=== PATIENT | male | born 1970 | race Caucasian/White ===

== ENCOUNTER → 2017-09-24 10:13 | Outpatient (CLI) | payer OTHER, SELFPAY ==
[2017-09-24 10:57] LABS: INR 2.4 (1.0-3.5); Prothrombin Time 23.1 sec (9.3-10.8)
== END ==
PROVIDERS: PCP Nurse Practitioner; Visit Provider Nurse Practitioner
DX: Z95.2 Presence of prosthetic heart valve (principal); Z79.01 Long term (current) use of anticoagulants
CPT/HCPCS: 85610

== ENCOUNTER → 2017-10-16 10:03 | Outpatient (CLI) | payer OTHER, SELFPAY ==
[2017-10-16 10:35] LABS: INR 2.4 (1.0-3.5); Prothrombin Time 22.7 sec (9.3-10.8)
== END ==
PROVIDERS: PCP Nurse Practitioner; Visit Provider Nurse Practitioner
DX: Z79.01 Long term (current) use of anticoagulants (principal); Z95.2 Presence of prosthetic heart valve
CPT/HCPCS: 36415; 85610

== ENCOUNTER 2017-12-01 15:35 | Outpatient (CLI) | payer OTHER, SELFPAY ==
[2017-12-01 16:17] LABS: INR 2.2 (1.0-3.5); Prothrombin Time 20.7 sec (9.3-10.8)
== END 2017-12-01 15:55 ==
PROVIDERS: PCP Nurse Practitioner; Visit Provider Nurse Practitioner
DX: Z95.2 Presence of prosthetic heart valve (principal); Z79.01 Long term (current) use of anticoagulants
CPT/HCPCS: 36415; 85610

== ENCOUNTER 2018-01-18 15:36 | Outpatient (CLI) | payer OTHER, SELFPAY ==
[2018-01-18 16:23] LABS: Prothrombin Time 18.8 sec (9.3-10.8)
== END 2018-01-18 15:56 ==
PROVIDERS: PCP Nurse Practitioner; Visit Provider Nurse Practitioner
DX: Z79.01 Long term (current) use of anticoagulants (principal); Z95.2 Presence of prosthetic heart valve
CPT/HCPCS: 36415; 85610

== ENCOUNTER 2018-02-24 15:20 | Outpatient (CLI) | payer OTHER, SELFPAY ==
[2018-02-24 16:39] LABS: Prothrombin Time 19.6 sec (9.3-11.0)
[2018-02-24 16:42] LABS: INR 1.9 (0.9-1.1)
== END 2018-02-24 15:40 ==
PROVIDERS: PCP Nurse Practitioner; Visit Provider Nurse Practitioner
DX: Z79.01 Long term (current) use of anticoagulants (principal); Z95.2 Presence of prosthetic heart valve
CPT/HCPCS: 36415; 85610

== ENCOUNTER 2018-03-06 15:29 | Outpatient (CLI) | payer OTHER, SELFPAY ==
[2018-03-06 16:42] LABS: INR 2.7 (0.9-1.1); Prothrombin Time 27.6 sec (9.3-11.0)
== END 2018-03-06 15:49 ==
PROVIDERS: PCP Nurse Practitioner; Visit Provider Nurse Practitioner
DX: Z95.2 Presence of prosthetic heart valve (principal); Z79.01 Long term (current) use of anticoagulants
CPT/HCPCS: 36415; 85610

== ENCOUNTER 2018-05-25 08:24 | Outpatient (REF) | payer OTHER, SELFPAY ==
[2018-05-25 12:53] LABS: ALT 28 U/L (12-78); AST 25 U/L (15-37); Alkaline Phosphatase 85 U/L (46-116); Anion Gap 8.8 mmol/L (3-11); BUN 17 mg/dL (7-18); Bilirubin, Total 0.6 mg/dL (0.2-1.0); CO2 27.2 mmol/L (21.0-32.0); CREATININE 1.06 mg/dL (0.70-1.30); Calcium 8.9 mg/dL (8.5-10.1); Chloride 105 mmol/L (98-107); Cholesterol 247 mg/dL (50-200); Glucose 87 mg/dL (70-100); HDL Cholesterol 39 mg/dL (40-60); LDL CHOLESTEROL 178 mg/dL (<100); Potassium 4.2 mmol/L (3.5-5.1); Sodium 141 mmol/L (136-145); Total Protein 7.1 g/dL (6.4-8.2); Triglyceride 93 mg/dL (30-150)
== END 2018-05-25 08:44 ==
LOC: NCHCN 08:24
PROVIDERS: PCP Nurse Practitioner; Visit Provider Nurse Practitioner
DX: E78.5 Hyperlipidemia, unspecified (principal); Z95.2 Presence of prosthetic heart valve
CPT/HCPCS: 80053; 80061; 83721; 87081

== ENCOUNTER 2018-06-23 15:11 | Outpatient (CLI) | payer OTHER, SELFPAY ==
[2018-06-23 16:07] LABS: INR 2.1 (0.9-1.1); Prothrombin Time 21.2 sec (9.3-11.0)
== END 2018-06-23 15:31 ==
PROVIDERS: PCP Nurse Practitioner; Visit Provider Nurse Practitioner
DX: Z95.2 Presence of prosthetic heart valve; Z79.01 Long term (current) use of anticoagulants
CPT/HCPCS: 36415; 85610

== ENCOUNTER 2018-09-13 15:14 | Outpatient (CLI) | payer OTHER, SELFPAY ==
[2018-09-13 16:07] LABS: Prothrombin Time 20.6 sec (9.3-11.0)
== END 2018-09-13 15:34 ==
PROVIDERS: PCP Nurse Practitioner; Visit Provider Nurse Practitioner
DX: Z95.2 Presence of prosthetic heart valve (principal); Z79.01 Long term (current) use of anticoagulants
CPT/HCPCS: 36415; 85610

== ENCOUNTER 2018-11-07 15:34 | Outpatient (CLI) | payer OTHER, SELFPAY ==
[2018-11-07 16:19] LABS: INR 1.9 (0.9-1.1); Prothrombin Time 19.1 sec (9.3-11.0)
== END 2018-11-07 15:54 ==
PROVIDERS: PCP Nurse Practitioner; Visit Provider Nurse Practitioner
DX: Z95.2 Presence of prosthetic heart valve (principal); Z79.01 Long term (current) use of anticoagulants
CPT/HCPCS: 36415; 85610

== ENCOUNTER 2019-04-30 15:24 | Outpatient (CLI) | payer OTHER, SELFPAY ==
[2019-04-30 16:03] LABS: INR 1.9 (0.9-1.1); Prothrombin Time 18.4 sec (9.3-11.0)
== END 2019-04-30 15:44 ==
PROVIDERS: PCP Nurse Practitioner; Visit Provider Nurse Practitioner
DX: Z95.2 Presence of prosthetic heart valve (principal); Z79.01 Long term (current) use of anticoagulants
CPT/HCPCS: 36415; 85610

== ENCOUNTER 2019-05-09 15:17 | Outpatient (CLI) | payer OTHER, SELFPAY ==
[2019-05-09 16:25] LABS: INR 2.1 (0.9-1.1)
== END 2019-05-09 15:37 ==
PROVIDERS: PCP Nurse Practitioner; Visit Provider Nurse Practitioner
DX: Z79.01 Long term (current) use of anticoagulants (principal)
CPT/HCPCS: 36415; 85610

== ENCOUNTER 2019-05-23 15:30 | Outpatient (REF) | payer OTHER, SELFPAY ==
[2019-05-23 17:58] LABS: ALT 27 U/L (16-63); AST 25 U/L (15-37); Albumin 4.4 g/dL (3.4-5.0); Alkaline Phosphatase 85 U/L (46-116); Anion Gap 7.6 mmol/L (3-11); BUN 15 mg/dL (7-18); Bilirubin, Total 0.7 mg/dL (0.2-1.0); CO2 29.4 mmol/L (21.0-32.0); CREATININE 1.11 mg/dL (0.70-1.30); Calcium 9.1 mg/dL (8.5-10.1); Calculated LDL 167 mg/dL (<100); Chloride 103 mmol/L (98-107); Cholesterol 224 mg/dL (<200); Glucose 81 mg/dL (74-106); HDL Cholesterol 45 mg/dL (40-60); Potassium 4.4 mmol/L (3.5-5.1); Sodium 140 mmol/L (136-145); Total Protein 7.6 g/dL (6.4-8.2); Triglyceride 63 mg/dL (<150)
== END 2019-05-23 15:50 ==
LOC: NCHCN 15:30
PROVIDERS: PCP Nurse Practitioner; Visit Provider Nurse Practitioner
DX: Z00.00 Encounter for general adult medical examination without abnormal findings (principal); E78.5 Hyperlipidemia, unspecified
CPT/HCPCS: 80053; 80061

== ENCOUNTER 2019-12-18 14:16 | Outpatient (REF) | payer OTHER, SELFPAY ==
[2019-12-18 19:16] LABS: Calculated LDL 182 mg/dL (<100); Cholesterol 248 mg/dL (<200); HDL Cholesterol 50 mg/dL (40-60); Triglyceride 81 mg/dL (<150)
[2019-12-18 19:21] LABS: INR 2.2 (0.9-1.1); Prothrombin Time 21.3 sec (9.3-11.0)
== END 2019-12-18 14:36 ==
LOC: NCHCN 14:16
PROVIDERS: PCP Nurse Practitioner; Visit Provider Nurse Practitioner
DX: E78.5 Hyperlipidemia, unspecified (principal); Z79.01 Long term (current) use of anticoagulants
CPT/HCPCS: 80061; 85610

== ENCOUNTER 2020-02-05 00:26 | Outpatient (CLI) | payer OTHER, SELFPAY ==
--- NOTE | 2020-02-05 07:29 | DI.US_ITS ---
APPROVED REPORT EXAM: Comprehensive 2D, Doppler, and color-flow Echocardiogram Patient Location: Out-Patient Driver License Technician: Palmira Morse RDCS (AE) Indications: History of aortic valve replacement, [place] valve Other Information Study Quality: Adequate Conclusion Left Ventricle : Left ventricle is mildly dilated. The left ventricular systolic function is normal. The left ventricular ejection fraction is within the normal range. There is normal left ventricular w all thickness. There is normal LV segmental wall motion. The left ventricular diastolic function is n ormal. LVEF is 56%. Right Ventricle : The right ventricle is normal size. The right ventricular systolic function is norm al. The RVSP is 21.8mmHg. Atria : The left atrium size is normal. The right atrium size is normal. Aortic Valve : Mechanical aortic valve is present. Prosthetic aortic valve is normal in appearance. T race aortic regurgitation. No hemodynamically significant valvular aortic stenosis. Mitral Valve : The mitral valve is normal in structure. Mild mitral regurgitation. No evidence of briana ral valve stenosis. Great Vessels : The aortic root is normal in size. IVC is normal in size and collapses >50% with insp iration. The ascending aorta is normal in size. Aortic arch is normal in caliber. There is no prior study available for comparison. Wall motion Left Ventricle Left ventricle is mildly dilated. The left ventricular systolic function is normal. The left ventricu lar ejection fraction is within the normal range. There is normal left ventricular wall thickness. Th ere is normal LV segmental wall motion. The left ventricular diastolic function is normal. There is n o ventricular septal defect visualized. LVEF is 56%. Right Ventricle The right ventricle is normal size. The right ventricular systolic function is normal. The RVSP is 21 .8mmHg. Atria The left atrium size is normal. The right atrium size is normal. The interatrial septum is intact wit h no evidence for an atrial septal defect. Aortic Valve No hemodynamically significant valvular aortic stenosis. Trace aortic regurgitation. Mechanical aorti c valve is present. Prosthetic aortic valve is normal in appearance. Mitral Valve The mitral valve is normal in structure. No evidence of mitral valve stenosis. Mild mitral regurgitat ion. Tricuspid Valve The tricuspid valve is normal in structure. There is no tricuspid valve stenosis. Trace tricuspid reg urgitation. Pulmonic Valve The pulmonary valve is normal in structure. There is no pulmonic valvular stenosis. Trace to mild pul partha regurgitation. Great Vessels The aortic root is normal in size. The ascending aorta is normal in size. Aortic arch is normal in ca liber. IVC is normal in size and collapses >50% with inspiration. Pericardium There is no pericardial effusion. 2D Dimensions IVSD d PLAX 0.98 cm M: 0.6-1.2 LV Vol A2C d MOD 214.1 mL LVPW d PLAX 0.98 cm M: 0.6 - 1.2 LV Vol A4C d MOD 176.1 mL LVID d PLAX 6.25 cm M: 4.2 - 5.8 LA vol/ BSA A4C s A-L 26.6 mL/m2 LVDs 4.30 cm M: 2.5 - 4.0 LA Area A4C s MOD 19.94 cm2 Ao Root d 2.92 cm M: 3.1 - 3.7 LV EF A4C MOD 55.0 % RA Area A4C 18.98 cm2 LV EF A2C MOD 56.3 % RA Vol/ BSA A4C s A-L 26.2 mL/m2 LV EF Biplane MOD 55.1 % Ao Asc Diam d 3.13 cm M: 2.6 - 3.4 SV 108.23 mL LV EF Teichholz 57.7 % SV Index 48.30 mL/m2 LVEF (Chan's) 55.08 % M: 52 - 72 LV Volume 142.10 mL M: 62 - 150 LV Volume Index 63.43 mL/m2 M: 34 - 74 LV Vol Biplane MOD 196.5 mL FS 30.95 % M-Mode TAPSE 2.05 cm (M/F) >1.7 LV Diastology MV E' medial 0.081 (>0.07 m/s) E/A Ratio 2.2 LV E/e MED 9.35 (<14) MV E Vmax 0.76 (0.4-1.3 m/s) MV E' lateral 0.150 (>0.1 m/s) MV A Vmax 0.35 (0.4-1.3 m/s) LV E/e LAT 5.05 (<14) MV E/A Ratio 2.15 MV E/E' medial 9.39 MV E/E' lateral 5.05 Aortic Valve LVOT Area 2.96 cm2 AoV Area Vmax 1.84 cm2 LVOT Vmax 1.49 m/s AoV Area/ BSA (Vmax) 0.82 cm2/m2 LVOT Mean Yasmany. 0.80 m/s DESIREE Mean Yasmany. 1.48 cm2 LVOT Peak Grad 8.9 mmHg DESIREE Mean Yasmany. Index 0.66 cm2/m2 LVOT Mean Grad 3.3 mmHg LVOT VTI 0.289 m LVOT Diam s 1.90 cm AoV Vmax 2.41 m/s Velocity Ratio 0.61 AoV Mean Yasmany. 1.60 m/s AoV Peak Grad 23.3 mmHg LVOT SV 85.66 mL AoV Mean Grad 11.8 mmHg AoV VTI 0.477 m AoV Area VTI 1.79 cm2 AoV Area/ BSA (VTI) 0.80 cm/m2 Mitral Valve MV DT 269 (160-240 msec) MR Vmax 4.62 m/s MV PHT 78 msec MR VTI 1.713 m MV Area PHT 2.82 cm2 MR Peak Grad 85.4 mmHg MV VTI 0.325 m MR Mean Grad 55.5 mmHg MV VTI Annulus 0.332 m MR PISA Radius 0.70 cm MV Area VTI 2.70 (4.0-6.0 cm2) MR EROA 0.23 cm2 MR Aliasing Velocity 0.35 m/s MR PISA 3.06 cm2 Pulmonary Valve PV Vmax 1.05 (0.5-1.5 m/s) RVOT Peak Gr. 2.19 mmHg PV Peak Grad 4.4 mmHg RVOT Mean Gr. 1.05 mmHg PV Mean Grad 2.1 mmHg RVOT VTI 0.178 m PV VTI 0.241 m RVOT Vmax 0.74 m/s Tricuspid Valve TR Peak Grad 18.8 mmHg TR Vmax 2.17 m/s RA Pressure 3.00 mmHg RVSP (TR) 21.8 mmHg
== END 2020-02-05 00:46 ==
PROVIDERS: PCP Nurse Practitioner; Visit Provider Internal Medicine Cardiovascular Disease
DX: Z95.2 Presence of prosthetic heart valve (principal); I34.0 Nonrheumatic mitral (valve) insufficiency
CPT/HCPCS: 93306

== ENCOUNTER 2020-09-03 12:27 | Outpatient (REF) | payer BC, SELFPAY ==
[2020-09-03 14:25] LABS: Abs Immature Grans 0.01 10^3/uL (0.0-0.06); Absolute Basophil Count 0.03 10^3/uL (0.0-0.2); Absolute Eosinophil Count 0.13 10^3/uL (0.0-0.7); Absolute Lymphocyte Count 0.91 10^3/uL (1.2-3.4); Absolute Monocyte Count 0.48 10^3/uL (0.1-0.8); Absolute Neutrophil Count 3.63 10^3/uL (1.2-6.7); Basophils % 0.6; Eosinophils % 2.5; HCT 42.3 % (40.0-50.0); HGB 13.9 g/dL (13.5-17.5); Immature Grans % 0.2; Lymphocytes % 17.5; MCH 29.6 pg (27.0-33.0); MCHC 32.9 % (32.0-36.0); MPV 12.8 fL (8.0-11.0); Monocytes % 9.2; Nucleated RBC 0 %; Platelet Count 166 10^3/uL (130-400); RDW 12.7 % (11.8-14.1); RDW-SD 41.9 fL; WBC 5.19 10^3/uL (4.4-10.8)
[2020-09-03 14:38] LABS: INR 2.1 (0.9-1.1); Prothrombin Time 20.3 sec (9.3-11.0)
[2020-09-03 14:39] LABS: Anion Gap 6.5 mmol/L (3-11); BUN 12 mg/dL (7-18); CO2 29.5 mmol/L (21.0-32.0); CREATININE 1.1 mg/dL (0.70-1.30); Calcium 8.9 mg/dL (8.5-10.1); Chloride 107 mmol/L (98-107); Glucose 106 mg/dL (74-106); Potassium 4.6 mmol/L (3.5-5.1); Sodium 143 mmol/L (136-145)
== END 2020-09-03 12:28 | disposition home or self-care (01) ==
LOC: LBN 12:27
PROVIDERS: PCP Nurse Practitioner; Visit Provider Physician Assistant Medical
DX: R31.9 Hematuria, unspecified (principal)
CPT/HCPCS: 80048; 85025; 85610

== ENCOUNTER 2020-09-10 09:41 | Outpatient (REF) | payer BC, SELFPAY ==
[2020-09-10 16:39] LABS: Bilirubin Negative (Negative); Blood Negative (Negative); Clarity Clear (Clear); Glucose Negative (Negative); Ketones Negative (Negative); Leukocyte Esterase Negative (Negative); Nitrite Negative (Negative); Specific Gravity 1.025 (1.005-1.025); pH 6.5 (5-8)
== END 2020-09-10 09:42 | disposition home or self-care (01) ==
LOC: NCHCN 09:41
PROVIDERS: PCP Nurse Practitioner; Visit Provider Nurse Practitioner
DX: R31.9 Hematuria, unspecified (principal)
CPT/HCPCS: 81003

== ENCOUNTER 2021-01-19 02:26 | Outpatient (CLI) | payer BC, SELFPAY ==
[2021-01-19 08:26] LABS: Calculated LDL 91 mg/dL (<100); Cholesterol 158 mg/dL (<200); HDL Cholesterol 55 mg/dL (40-60); Triglyceride 63 mg/dL (<150)
== END 2021-01-19 02:27 | disposition home or self-care (01) ==
LOC: LBO 02:27
PROVIDERS: PCP Nurse Practitioner; Visit Provider Internal Medicine Cardiovascular Disease
DX: E78.5 Hyperlipidemia, unspecified (principal)
CPT/HCPCS: 36415; 80061

== ENCOUNTER 2021-02-02 08:10 | Outpatient (CLI) | payer BC, SELFPAY | END 2021-02-02 08:11 | disposition home or self-care (01) | LOC: DI.CARD 08:12 | PROVIDERS: PCP Nurse Practitioner; Visit Provider Internal Medicine Cardiovascular Disease | DX: R69 Illness, unspecified (principal) | CPT/HCPCS: 93010 ==

== ENCOUNTER 2021-04-22 01:20 | Outpatient (CLI) | payer BC, SELFPAY ==
[2021-04-22 12:07] LABS: Source Nasal/Nares
[2021-04-22 14:31] LABS: COVID-19 PCR Negative (Negative)
== END 2021-04-22 01:21 | disposition home or self-care (01) ==
LOC: LBO 01:20
PROVIDERS: PCP Nurse Practitioner Family; Visit Provider Surgery
DX: Z20.822 Contact with and (suspected) exposure to COVID-19 (principal)
CPT/HCPCS: 87635

== ENCOUNTER 2021-04-24 06:18 | Day surgery (SDC) | payer BC, SELFPAY ==
--- NOTE | 2021-04-24 06:12 | W.ANESPRE ---
General Info Date of Service Date Performed: 04/24/21 Height: 6 ft 1 in Weight: 100.924 kg Body Mass Index (BMI): 29.3 Surgical Procedure: Operation Date: 04/24/21 07:35 Proposed Procedure Side Surgeon christos Lam, DO Meds Allergies and Home Medications Allergies Allergy/AdvReac Type Severity Reaction Status Date / Time No Known Allergies Allergy Verified 04/24/21 06:40 Home Medication Medication Instructions Recorded metoprolol succinate 100 mg 100 mg PO DAILY 11/30/12 tablet,extended release 24 hr atorvastatin 40 mg tablet 40 mg PO QHS #90 tab 01/07/20 amoxicillin 500 mg tablet 1,000 mg PO ONCE tab 10/20/20 ascorbate calcium (vitamin C) 500 500 mg PO DAILY 04/13/21 mg tablet bisacodyl 5 mg tablet,delayed 5 mg PO ONCE #4 tab 04/13/21 release (Dulcolax (bisacodyl)) enoxaparin 100 mg/mL subcutaneous 100 mg SUBCUT Q12H #10 ml 04/13/21 syringe (Lovenox) polyethylene glycol 3350 17 238 g PO ONCE #238 g 04/13/21 gram/dose oral powder warfarin 10 mg tablet (Coumadin) 7.5 mg PO DIRECTED tab 04/13/21 Current Visit Medications: Current Medications Generic Name Dose Route Start Last Admin Trade Name Freq PRN Reason Stop Dose Admin Hyoscyamine Sulfate 0.125 mg 04/23/21 09:58 Hyoscyamine 0.125 Mg Sl/Oral/Chew SL DIRECTED PRN Ringer's Solution 1,000 mls @ 80 mls/hr 04/24/21 06:00 IV 05/21/21 23:59 INFUSION [facility] Ampicillin Sodium 2 gm/ Sodium 100 mls @ 300 mls/hr 04/24/21 06:00 Chloride IVPB 04/24/21 16:00 PREOP [facility] IV Miscellaneous Supplies 1 each 04/24/21 06:00 Iv Access IV 05/21/21 23:59 DIRECTED [facility] Ondansetron HCl 4 mg 04/23/21 09:58 Ondansetron 4 Mg/2 Ml Vial IVP Q4H PRN PRN Nausea / Vomiting Sodium Chloride 0 ml 04/24/21 06:00 Normal Saline Flush 10 Ml Syr IV 05/21/21 23:59 PRN PRN Sodium Chloride 0 ml 04/24/21 06:00 Normal Saline 10 Ml Vial IJ 05/21/21 23:59 DIRECTED PRN Sterile Water 0 ml 04/24/21 06:00 Water,Injection,Sterile 10 Ml Vial IJ 05/21/21 23:59 DIRECTED PRN PFSH Active Problems Active Problems: Problem Status Onset Code H/O aortic root repair Z98.890 Hyperlipidemia E78.5 History of aortic valve replacement Z95.2 Medical History Medical History Aortic valve disease Enlarged prostate Hematuria Nephrolithiasis Surgical History Surgical History S/P AVR Tobacco Smoking/Tobacco Use Status: Never Alcohol Alcohol Intake: never Substance Use Substance use: Never Substance use type: does not use Vital Signs and Lab Results Vital Signs Most Recent Vital Signs in EMR: Temp Pulse Resp BP Pulse Ox 36.1 C L 63 16 128/77 100 04/24/21 06:33 04/24/21 06:33 04/24/21 06:33 04/24/21 06:33 04/24/21 06:33 Lab Results Blood Type / Crossmatch: No Data to Display Complete Blood Count: No Data to Display Complete Metabolic Panel: No Data to Display Liver Function Panel: No Data to Display Coagulation Panel: No Data to Display Cardiac Panel: No Data to Display Arterial Blood Gas: No Data to Display Venous Blood Gas: No Data to Display Pancreas Panel: No Data to Display Thyroid Panel: No Data to Display Infectious Disease: Coronavirus (COVID-19)(PCR) Negative (Negative) 04/22/21 08:37 04/22/21 Coronavirus 2019 Source Nasal/Nares 04/22/21 08:37 04/22/21 Blood Cultures: No Data to Display Toxicology Panel: No Data to Display Imaging and Studies Imaging and Studies Study information below may be from another EMR and interpreted by another provider. Please see original notes in EMR for more complete details. EKG Summary: 2020: nsr, non-specific conduction delay. Echocardiogram Summary: 2020: LVEF 56%, RVSP 21 mmhg, mechanical AoC - normal in appearance. mild MR. Anesthesia Assessment and Plan Anesthesia History Personal History: No History of Anesthesia Complications Family History: No Family History of Anesthesia Complications Exercise Tolerance Exercise Tolerance: Metabolic Equivalents>4 Cardiac & Pulmonary Exam Cardiac Exam: Normal S1/S2 Heart Sounds Pulmonary Exam: Clear Bilateral Breath Sounds Implantable Cardiac Device Does patient have a Pacemaker or an ICD?: No Airway Exam Known Difficult Airway: No Mallampati Class: 2 Mouth Opening: Normal (> 3cm) Thyromental Distance: Greater than 3 cm Neck Range of Motion: Full ROM Neck Circumference: Normal Teeth Condition: Normal Dentition and Loose or Chipped (Chipped front left lower) ASA Classification ASA Score: ASA 2 Emergency Case?: No NPO Status NPO Status: NPO Clears >2 hours, Solids >8 hours Anesthesia Plan Resuscitation Status: Full Code Anesthesia Technique: General Anesthesia Airway Planned: Natural Airway Monitors Used: Standard Monitors Preoperative Comments:: 51 yo male for screening colo. Sig PMHx: s/p AVR (20 yrs ago for bicuspid valve, metoprolol/warfarin), never smoker,
[2021-04-24 06:33] VITALS: BP 128/77; PULSE 63; RESP 16; TEMP 36.1; O2SAT 100
[2021-04-24] MEDS: Lactated Ringers 1,000 ML 80 ML IV (07:03)
[2021-04-24] MEDS: AMPICILLIN SODIUM 2 GM in Normal Saline 100 ML IVPB (07:20)
[2021-04-24 07:30] VITALS: BMI 29.3
--- NOTE | 2021-04-24 08:04 | BOWEL_PTH ---
PATIENT: Neville Bishop LOC: [facility] U#:[id number] AGE/SX: 51/M ROOM: RE04/24/[address]: Mirna Lam : 1970 BED: DIS: 04/24/2021 SPEC #: [id number] RECD: 04/24/21 12:09 STATUS: ALEJANDRO RE #: [id number] GENEVIEVE: 04/24/21 08:[address]: Mirna Lam DEPT: Surgical Specimen RECD BY: Renay Loomis ENTERED: 04/24/21 12:13 SP TYPE: Bowel OTHR DR: OLESYA TORRES, DENTAL TECHNICIAN INSTRUCTOR Tissues: 1 - BIOPSY BOWEL 2 - BIOPSY BOWEL Procedures: GROSS AND MICRO LEVEL 4 Comments: [id number]
--- NOTE | 2021-04-24 08:25 | W.COLOREPORT ---
Colonoscopy Report Date of procedure: 04/24/21 Pre-op diagnosis general: CRC screen Post-op diagnosis procedure note: other (polyps x2) Procedure: Cold polypectomy x2 Surgeon: Mirna Lam Anesthesia Type: General:No Airway Estimated blood loss (mL): 2 Disposition: same day Prep: Miralax/Dulcolax Retraction Time: 10 mins Procedure Description: After informed consent was obtained the patient was taken to the procedure room and placed in a left decubitous position. Monitors were applied and a time out was done. The patients name, date of , procedure, allergies to medications and metal in their body was reviewed. The patient was then sedated. Once sedated and comfortable a rectal exam was done. External exam was normal. Internal exam revealed a normal sphincter tone and no palpable masses. The scope was then introduced and retrofelexed. No internal hemorrhoids were identified. The scope was then advanced to the cecum w/out difficulty. The TI and appendiceal orifice were identified. The prep was BBPS- 3 (9) in all segments.. The scope was then slowly retracted over 10 minutes back into the rectum. There are no AVMs or diverticula visualized today. He does have x2 0.75 cm round pedunculated polyp. These are both removed with a cold snare. 1 is at 20 cm. The other is a 25 cm. All specimen is retrieved and no bleeding is noted. scope was removed and the patient was woken up and taken back to Same day surgery in stable condition. The patient tolerated the procedure well and there were no immediate complications. Follow up: The patient should follow up in 5-7 years unless they develop changes in bowel habits or other new gastrointestinal complaints.
[2021-04-24 08:30] VITALS: BP 105/67; PULSE 54; RESP 22; TEMP 36.5; O2SAT 96
--- NOTE | 2021-04-24 08:30 | PDOC.DSDIS_ITS ---
Discharge Plan Disposition Patient Disposition: HOME Condition: Good Discharge Details Reason For Visit: colon scope Attending Provider: Mirna Lam Primary Care Provider: OLESYA TORRES Home Meds and New Rx's Prescriptions: No Action ascorbate calcium (vitamin C) 500 mg tablet 500 mg PO DAILY 0RF polyethylene glycol 3350 17 gram/dose powder 238 g PO ONCE Qty: 238 0RF Rx Instructions: take per colonoscopy instructions bisacodyl [Dulcolax (bisacodyl)] 5 mg tablet,delayed release (DR/EC) 5 mg PO ONCE Qty: 4 0RF Rx Instructions: take per colonoscopy instructions enoxaparin [Lovenox] 100 mg/mL syringe 100 mg subcut Q12H Qty: 10 2RF atorvastatin 40 mg tablet 40 mg PO QHS Qty: 90 3RF amoxicillin 500 mg tablet 1,000 mg PO ONCE 0RF Label Comments: Patient takes prior to dentist appt. metoprolol succinate 100 MG tablet extended release 24 hr 100 mg PO DAILY 0RF warfarin [Coumadin] 10 mg tablet 7.5 mg PO DIRECTED 0RF Label Comments: Every day except Tuesday then he takes 5mg Discharge Instructions Additional Instructions: DSU Colonoscopy Post- Op Instructions Instructions for Everyone who is given Anesthesia: For your safety, please do the following for the next twenty-four (24) hours: *Do Not operate a motor vehicle (car, truck, motorcycle, etc.) *Do Not drink alcoholic beverages or use any recreational drugs for the first 24 hours or while taking pain medications. The medications in your body may have a reaction that can be dangerous. *Do Not make any important decisions or sign any important papers. Findings: polyps x2 Follow up: probably repeat scope in 5 ysrs time. My office will send a letter in 2 to 3 weeks time detailing as to what type of polyps they were and when we want you to repeat the colonoscopy. -Start Lovenox in 12 hours. -If no bleeding heavy bleeding, resume Coumadin on Tuesday. Please follow-up with your PCP on Tuesday to have an INR check. -No aspirin or NSAIDs for 10 days. Tylenol is okay. -You will probably noticed some scant bleeding for the first 24 hours. If you have bleeding that fills the toilet or passing large clots, stop your coumadin and come to the ER. 1. No lifting over 20 pounds or strenuous activity for the first 72 hours after your procedure. After 72 hours there are no restrictions on your activity but you may feel fatigued for a few days. 2. After you arrive home you may have a light meal and return to your normal diet as you can tolerate it without feeling sick to your stomach. 3. You may have a bloated, gaseous feeling in your belly (abdomen) after a colonoscopy. Passing gas and belching will help. Walking or lying down on your left side with your knees flexed may relieve the discomfort. Call the office at [phone] (Office) or [phone] (Hospital) right away if you notice any of the following: a.Vomiting of blood or ?coffee ground stools?. b.Rectal bleeding 1Tbsp, blood clots or continuous bleeding. c.Severe belly (abdominal) pain. d.A hard distended belly (abdomen) and an inability to pass gas. 4. Please don?t expect to have a normal BM (bowel movement) for 2-3 days after your procedure. 5. If there are questions regarding the findings of your procedure, please contact your doctor 6. If you are unable to contact your doctor with a problem, contact the hospital at [phone]. 7. Continue all your regular medications unless directed otherwise. I understand the above instructions and have no questions. Signature of Patient or Adult Escort Name of Responsible Adult Escort Signature of Nurse Date/Time Activity:: see above Diet:: see above Discharge Orders Discharge Orders: Discharge Order (Routine); Ordered 04/23/21 Ordered By: Mirna Lam
--- NOTE | 2021-04-24 08:34 | W.ANESPOSTOP ---
Postoperative Evaluation Date, Time and Location Date Performed: 04/24/21 Time Performed: 08:34 Patient Location: Day Surgery Unit Vital Signs Most Recent Imported Vital Signs: Most Recent Vital Signs Temp Pulse Resp BP Pulse Ox 36.5 C 54 L 22 105/67 96 04/24/21 08:30 04/24/21 08:30 04/24/21 08:30 04/24/21 08:30 04/24/21 08:30 Pain Score Most Recent Pain Score: Most Recent Pain Score Pain Level 0 04/24/21 06:33 Assessment Mental Status: Awake (Alert & Oriented to Patient Baseline) Airway and Respiratory Function: Patent airway with normal (patient baseline) respiratory exam Cardiovascular Function: Hemodynamically Stable Hydration Status: Adequately Hydrated Nausea & Vomiting: No Nausea or Vomiting Pain: Pt. Denies Any Pain Peripheral Nerve Block: Patient did not receive a nerve block
[2021-04-24 08:56] VITALS: BP 107/71; PULSE 51; RESP 18; TEMP 36.4; O2SAT 97
--- NOTE | 2021-04-24 09:20 | PDOC.DSDIS_ITS ---
Discharge Plan Disposition Patient Disposition: HOME Condition: Good Discharge Details Reason For Visit: colon scope Attending Provider: Mirna Lam Primary Care Provider: OLSEYA TORRES Home Meds and New Rx's Prescriptions: New enoxaparin [Lovenox] 100 mg/mL syringe 90 mg subcut Q12H Qty: 12 0RF Rx Instructions: resume 04/24/21 9pm Continued ascorbate calcium (vitamin C) 500 mg tablet 500 mg PO DAILY 0RF enoxaparin [Lovenox] 100 mg/mL syringe 100 mg subcut Q12H Qty: 10 2RF atorvastatin 40 mg tablet 40 mg PO QHS Qty: 90 3RF metoprolol succinate 100 MG tablet extended release 24 hr 100 mg PO DAILY 0RF Held warfarin [Coumadin] 10 mg tablet 7.5 mg PO DIRECTED 0RF Hold Instructions: Resume on 04/26/21. resume tuesday pm Label Comments: Every day except Tuesday then he takes 5mg Discontinued polyethylene glycol 3350 17 gram/dose powder 238 g PO ONCE Qty: 238 0RF Rx Instructions: take per colonoscopy instructions bisacodyl [Dulcolax (bisacodyl)] 5 mg tablet,delayed release (DR/EC) 5 mg PO ONCE Qty: 4 0RF Rx Instructions: take per colonoscopy instructions amoxicillin 500 mg tablet 1,000 mg PO ONCE 0RF Label Comments: Patient takes prior to dentist appt. Discharge Instructions Additional Instructions: DSU Colonoscopy Post- Op Instructions Instructions for Everyone who is given Anesthesia: For your safety, please do the following for the next tw enty-four (24) hours: *Do Not operate a motor vehicle (car, truck, motorcycle, etc.) *Do Not drink alcoholic beverages or use any recreational drugs for the first 24 hours or while taking pain medications. The medications in your body may have a reaction that can be dangerous. *Do Not make any important decisions or sign any important papers. Findings: polyps x2 Follow up: probably repeat scope in 5 ysrs time. My office will send a letter in 2 to 3 weeks time detailing as to what type of polyps they were and when we want you to repeat the colonoscopy. -Start Lovenox in 12 hours. -If no bleeding heavy bleeding, resume Coumadin on Tuesday. Please follow-up with your PCP on Tuesday to have an INR check. -No aspirin or NSAIDs for 10 days. Tylenol is okay. -You will probably noticed some scant bleeding for the first 24 hours. If you have bleeding that fills the toilet or passing large clots, stop your coumadin and come to the ER. 1. No lifting over 20 pounds or strenuous activity for the first 72 hours after your procedure. After 72 hours there are no restrictions on your activity but you may feel fatigued for a few days. 2. After you arrive home you may have a light meal and return to your normal diet as you can tolerate it without feeling sick to your stomach. 3. You may have a bloated, gaseous feeling in your belly (abdomen) after a colonoscopy. Passing gas and belching will help. Walking or lying down on your left side with your knees flexed may relieve the discomfort. Call the office at [phone] (Office) or [phone] (Hospital) right away if you notice any of the following: a.Vomiting of blood or ?coffee ground stools?. b.Rectal bleeding 1Tbsp, blood clots or continuous bleeding. c.Severe belly (abdominal) pain. d.A hard distended belly (abdomen) and an inability to pass gas. 4. Please don?t expect to have a normal BM (bowel movement) for 2-3 days after your procedure. 5. If there are questions regarding the findings of your procedure, please contact your doctor 6. If you are unable to contact your doctor with a problem, contact the hospital at [phone]. 7. Continue all your regular medications unless directed otherwise. I understand the above instructions and have no questions. Signature of Patient or Adult Escort Name of Responsible Adult Escort Signature of Nurse Date/Time Activity:: see above Diet:: see above Discharge Orders Discharge Orders: Discharge Order (Routine); Ordered 04/23/21 Ordered By: Mirna Lam
== END 2021-04-24 09:35 | disposition home or self-care (01) ==
PROVIDERS: PCP Nurse Practitioner Family; Visit Provider Surgery
PROC: 0DJD8ZZ Inspection of Lower Intestinal Tract, Via Natural or Artificial Opening Endoscopic (ICD-10-PCS; CPT 45378; principal; 2021-04-24 07:30)
DX: Z12.11 Encounter for screening for malignant neoplasm of colon (principal); K63.5 Polyp of colon; Z79.01 Long term (current) use of anticoagulants; Z95.2 Presence of prosthetic heart valve
CPT/HCPCS: 45385; 88305; J0290; J2001; J2704

== ENCOUNTER 2021-05-01 18:29 | Outpatient (REF) | payer BC, SELFPAY ==
[2021-05-01 20:17] LABS: INR 1.7 (0.9-1.1); Prothrombin Time 17.3 sec (9.3-11.0)
== END 2021-05-01 18:30 | disposition home or self-care (01) ==
LOC: NCHCN 18:29
PROVIDERS: PCP Nurse Practitioner Family; Visit Provider Nurse Practitioner Family
DX: Z79.01 Long term (current) use of anticoagulants (principal)
CPT/HCPCS: 85610

== ENCOUNTER 2021-05-04 17:29 | Outpatient (REF) | payer BC, SELFPAY ==
[2021-05-04 19:40] LABS: INR 2.1 (0.9-1.1); Prothrombin Time 20.6 sec (9.3-11.0)
== END 2021-05-04 17:30 | disposition home or self-care (01) ==
LOC: NCHCN 17:29
PROVIDERS: PCP Nurse Practitioner Family; Visit Provider Nurse Practitioner Family
DX: Z79.01 Long term (current) use of anticoagulants (principal)
CPT/HCPCS: 85610

== ENCOUNTER 2022-02-02 08:45 | Outpatient (CLI) | payer BC, SELFPAY ==
--- NOTE | 2022-02-02 08:45 | RT.EKG_ITS ---
APPROVED REPORT Exam: Resting ECG Reason for Exam: f/u Patient Location: O HR:53 bpm ECG Measurements Heart Rate 53 AXIS WV 172 P 148 QRSd 122 QRS 148 QT 426 T 144 QTc 400 Conclusion Sinus rhythm...P axis (-45,135) Probable left atrial enlargement...P >50mS, <-0.10mV V1 Nonspecific intraventricular conduction delay...QRSd >115mS, not LBBB/RBBB Left ventricular hypertrophy with repolarization abnormalities Right axis
== END 2022-02-02 08:46 | disposition home or self-care (01) ==
LOC: DI.CARD 08:46
PROVIDERS: PCP Nurse Practitioner Family; Visit Provider Internal Medicine Cardiovascular Disease
DX: E78.5 Hyperlipidemia, unspecified (principal); Z95.2 Presence of prosthetic heart valve; Z98.890 Other specified postprocedural states; R94.31 Abnormal electrocardiogram [ECG] [EKG]
CPT/HCPCS: 93010

== ENCOUNTER 2022-02-05 15:53 | Outpatient (REF) | payer BC, SELFPAY ==
[2022-02-05 16:03] LABS: Abs Immature Grans 0.01 10^3/uL (0.0-0.06); Absolute Basophil Count 0.04 10^3/uL (0.0-0.2); Absolute Eosinophil Count 0.22 10^3/uL (0.0-0.7); Absolute Lymphocyte Count 1.31 10^3/uL (1.2-3.4); Absolute Monocyte Count 0.74 10^3/uL (0.1-0.8); Absolute Neutrophil Count 4.13 10^3/uL (1.2-6.7); Basophils % 0.6; Eosinophils % 3.4; HCT 42.8 % (40.0-50.0); HGB 14.3 g/dL (13.5-17.5); Immature Grans % 0.2; Lymphocytes % 20.3; MCH 29.4 pg (27.0-33.0); MCHC 33.4 % (32.0-36.0); MCV 88 fL (80-95); MPV 12.5 fL (8.0-11.0); Monocytes % 11.5; Platelet Count 158 10^3/uL (130-400); RBC 4.87 10^6/uL (4.36-5.78); RDW 12.8 % (11.8-14.1); RDW-SD 41.6 fL; WBC 6.45 10^3/uL (4.4-10.8)
[2022-02-05 16:18] LABS: ALT 28 U/L (16-63); AST 32 U/L (15-37); Albumin 4.2 g/dL (3.4-5.0); Alkaline Phosphatase 83 U/L (46-116); Anion Gap 4.9 mmol/L (3-11); BUN 18 mg/dL (7-18); Bilirubin, Total 0.7 mg/dL (0.2-1.0); CO2 29.1 mmol/L (21.0-32.0); Calcium 9.1 mg/dL (8.5-10.1); Calculated LDL 77 mg/dL (<100); Chloride 102 mmol/L (98-107); Cholesterol 154 mg/dL (<200); Estimated GFR 91.12 (mL/min/1.73m2); Glucose 99 mg/dL (74-106); HDL Cholesterol 63 mg/dL (40-60); Potassium 4.5 mmol/L (3.5-5.1); Sodium 136 mmol/L (136-145); Total Protein 7.6 g/dL (6.4-8.2); Triglyceride 71 mg/dL (<150)
== END 2022-02-05 15:54 | disposition home or self-care (01) ==
LOC: NCHCN 15:53
PROVIDERS: PCP Nurse Practitioner Family; Visit Provider Nurse Practitioner Family
DX: Z00.00 Encounter for general adult medical examination without abnormal findings (principal); Z13.220 Encounter for screening for lipoid disorders; Z13.228 Encounter for screening for other metabolic disorders; Z13.0 Encounter for screening for diseases of the blood and blood-forming organs and certain disorders involving the immune mechanism
CPT/HCPCS: 80053; 80061; 85025

== ENCOUNTER 2023-01-12 14:09 | Outpatient (REF) | payer BC, SELFPAY ==
[2023-01-12 15:32] LABS: HCT 42.1 % (40.0-50.0); HGB 14.1 g/dL (13.5-17.5); MCHC 33.5 % (32.0-36.0); MCV 86 fL (80-95); MPV 12.3 fL (8.0-11.0); Platelet Count 161 10^3/uL (130-400); RBC 4.87 10^6/uL (4.36-5.78); RDW 12.6 % (11.8-14.1); RDW-SD 39.8 fL; WBC 4.41 10^3/uL (4.4-10.8)
[2023-01-12 15:44] LABS: ALT 24 U/L (16-63); AST 26 U/L (15-37); Albumin 4.1 g/dL (3.4-5.0); Alkaline Phosphatase 88 U/L (46-116); Anion Gap 6.5 mmol/L (3-11); BUN 15 mg/dL (7-18); Bilirubin, Total 0.4 mg/dL (0.2-1.0); CO2 26.5 mmol/L (21.0-32.0); Calcium 9.5 mg/dL (8.5-10.1); Calculated LDL 75 mg/dL (<100); Chloride 104 mmol/L (98-107); Cholesterol 142 mg/dL (<200); Estimated GFR 90.56 (mL/min/1.73m2); Glucose 99 mg/dL (74-106); HDL Cholesterol 55 mg/dL (40-60); Sodium 137 mmol/L (136-145); Total Protein 7.5 g/dL (6.4-8.2); Triglyceride 62 mg/dL (<150)
== END 2023-01-12 14:10 | disposition home or self-care (01) ==
LOC: NCHCN 14:09
PROVIDERS: PCP Nurse Practitioner Family; Visit Provider Nurse Practitioner Family
DX: Z79.01 Long term (current) use of anticoagulants (principal); E78.5 Hyperlipidemia, unspecified
CPT/HCPCS: 80053; 80061; 84153; 85027

== ENCOUNTER 2023-06-15 18:32 | Emergency (ER) | payer BC, SELFPAY ==
[2023-06-15 18:38] VITALS: BP 155/50; PULSE 51; RESP 18; TEMP 36.7; O2SAT 99
--- NOTE | 2023-06-15 18:45 | DI.RAD_ITS ---
Exam(s) XR FINGER RT LITTLE EXAM: XR FINGER RT LITTLE CLINICAL HISTORY: pain. TECHNIQUE: 2D digital imaging was performed of the right finger. Three views were obtained. PA/AP, oblique, and lateral views were obtained. COMPARISON: No exams were available for comparison FINDINGS: BONES: There is an acute fracture through the midshaft of the middle phalanx of the 4th finger. No b stephenie destructive lesion is seen. JOINTS: There is an anterior dislocation of the PIP joint of the 5th finger. The finger is held in f lexion at the PIP joint. This may represent tendon injury. SOFT TISSUE: Normal. IMPRESSION: 1. Fracture of the middle phalanx of the 4th finger. 2. Anterior dislocation of the PIP joint of the 5th finger. There is persistent flexion deformity at the PIP joint. This may represent tendon injury. DATA REPOSITORY: RADIATION DOSE DELIVERED:
--- NOTE | 2023-06-15 18:48 | ED.GENADUL_ITS ---
Discharge Plan Disposition Patient Disposition: Home Condition: Stable Discharge Details Clinical Impression: Closed dislocation of right little finger Primary Care Provider: OLESYA TORRES ED Provider: Johan Nelson Home Meds and New Rx's Prescriptions: Continued atorvastatin 40 mg tablet 40 mg PO QHS Qty: 90 3RF pumpkin seed oil PO metoprolol succinate 100 MG tablet extended release 24 hr 100 mg PO DAILY warfarin [Coumadin] 10 mg tablet 7.5 mg PO DIRECTED Hold Instructions: Resume on 04/26/21. resume tuesday pm Patient Comments: Every day except Tuesday then he takes 5mg Discharge Instructions Additional Instructions: Call orthopedics tomorrow to arrange for follow-up appointment If you feel more ill or have severe worsening pain return to the emergency department for reevaluation Referrals: Niraj Fish MD [ [facility] STAFF PHYSICIAN] - [facility] General Mode of arrival: ambulatory . Date/Time Provider Initiated Documentation: 06/15/23 18:35 . Limitations to Documentation: no limitations . Information obtained by: patient . History of Present Illness 53 year old M presents to the emergency department with the chief complaint of Right pinky injury, described as moderate, Quality is described as aching, Patient started experiencing this hour(s) (1) and it has been constant. No relieving factors improve symptom(s), No exacerbating factors reported . Patient notes no other symptoms.. Patient did receive the following treatments prior to arrival, none Related Data Home Medications Medication Instructions Recorded Confirmed metoprolol succinate 100 mg 100 mg PO DAILY 11/30/12 06/15/23 tablet,extended release 24 hr atorvastatin 40 mg tablet 40 mg PO QHS #90 tabs 01/07/20 06/15/23 warfarin 10 mg tablet (Coumadin) 7.5 mg PO DIRECTED 04/13/21 06/15/23 pumpkin seed oil PO 02/02/22 01/25/23 Previous Rx's Medication Instructions Recorded atorvastatin 40 mg tablet 40 mg PO QHS #90 tabs 01/07/20 Allergies Allergy/AdvReac Type Severity Reaction Status Date / Time No Known Allergies Allergy Verified 06/15/23 18:42 General Stated Complaint: Orthopedic ALEX: 4 Review of Systems All systems reviewed & are unremarkable except as noted in HPI and below Constitutional Constitutional: Denies chills, Denies fever(s) and Denies weakness Cardiovascular Cardiovascular: Denies chest pain and Denies dyspnea Respiratory Respiratory: Denies cough and Denies dyspnea Gastrointestinal Gastrointestinal: Denies abdominal pain, Denies nausea and Denies vomiting Musculoskeletal Musculoskeletal: Denies joint swelling Neurologic Neurologic: Denies weakness Exam Const General: no acute distress Orientation: alert HENMT Head: normal to inspection Ears: external ears normal General nose exam: external nose normal Mouth: moist mucous membranes Eyes General: appearance normal, both eyes and all related structures Neck Neck: normal visual inspection Resp Effort & Inspection: normal respiratory effort and able to speak in complete sentences Cardio Rate: regular rate Neuro General: patient alert and patient oriented x3 Extrem General: capillary refill normal Psych Mental Status: mental status grossly normal Course Vital Signs Vital signs: Vital Signs Temperature 36.7 C 06/15/23 18:38 Pulse 51 L 06/15/23 18:38 Respiratory Rate 18 06/15/23 18:38 Blood Pressure 155/50 H 06/15/23 18:38 Pulse Oximetry 99 06/15/23 18:38 Temperature 36.7 C 06/15/23 18:38 Temperature Source Skin 06/15/23 18:38 Pulse 51 L 06/15/23 18:38 Respiratory Rate 18 06/15/23 18:38 Respiratory Effort Normal, Non-Labored 06/15/23 18:42 Blood Pressure 155/50 H 06/15/23 18:38 Blood Pressure Position Sitting 06/15/23 18:38 Pulse Oximetry 99 06/15/23 18:38 Oxygen Delivery Method Room Air 06/15/23 18:38 Oxygen Flow Rate 0 06/15/23 18:38 Pain Level 0 06/15/23 18:38 Procedures Orthopedic Joint Reduction Joint #1: Time Out Performed: Yes Side: right Joint Reduction Location: finger Analgesia: digital block Local Anesthesia: Lidocaine 2% Amount of anesthesic used (mL): 6 Technique used: traction/counter-traction Post-reduction neuro exam: intact Post-reduction vascular: intact Post Reduction X-Ray Obtained: Yes Post Reduction X-Ray Results: reduced Splint Applied: Yes Patient Tolerated Procedure: well Medical Decision Making 3-year-old male who has a history of aortic valve replacement on Coumadin, comes in with a right pinky injury. He says he was holding onto a horse lead when the horse pulled back his head pulling on the patient's right pinky. Did not hit his head or fall. He appears well on exam, has no signs of trauma to the head, he localized the pain to the PIP joint of the right pinky. He is unable to extend at this joint, has intact distal sensation and pulses, has a's very superficial abrasion on the lateral portion of the right pinky between the PIP and DIP joints. Suspect dislocation, will obtain x-rays to further evaluate. X-ray on my read shows a finger dislocation, after verbal consent I placed a digital block and pulled gentle traction and felt audible pop and finger visually is more realigned. Will obtain follow-up x-ray, V rad read still pending. X-ray on my read shows successful reduction of the dislocation, patient stable, will place on orthopedic follow-up list. Return precautions given Differential Diagnosis Differential Diagnosis: Dislocation, fracture Imaging Data Radiologic Study: Attestation: I personally reviewed and interpreted this imaging study as follows: Imaging: X-Ray Radiologist's impression: TECHNIQUE: Imaging protocol: Radiologic exam of the right fingers. Views: Minimum 2 views. COMPARISON: No relevant prior studies available. FINDINGS: Bones/joints: There is anterior dislocation of the 5th middle phalanx with respect to the proximal phalanx and associated persistent flexion deformity at the 5th PIP joint. Osseous alignment is otherwise normal. No definite acute fracture. No significant arthritic change. Soft tissues: Normal. IMPRESSION: Dislocation and associated flexion deformity at the 5th PIP joint. No definite fracture. Radiologic Study #2: Attestation: I personally reviewed and interpreted this imaging study as follows: Imaging: X-Ray My impression: Successful reduction of finger dislocation Quality:SDOH Health Related Social Needs: No Data to Display PFSH All Active Problems Closed dislocation of right little finger (Acute) Sessile colonic polyp (Acute ~04/24/21) H/O aortic root repair (Acute) Hyperlipidemia (Acute) History of aortic valve replacement (Acute) Medical History Nephrolithiasis Hematuria Enlarged prostate Aortic valve disease Surgical History History of colonoscopy with polypectomy (~04/24/21) S/P AVR Social History Smoking/Tobacco Use Status: Never Smoking risk assessment performed?: Yes Alcohol Intake: never Drug use: Never Substance use type: does not use Do you feel safe at home: Yes Do you feel safe in your relationship?: Yes
--- NOTE | 2023-06-15 19:45 | DI.RAD_ITS ---
Exam(s) XR FINGER RT LITTLE POST REDUC EXAM: XR FINGER RT LITTLE POST REDUC CLINICAL HISTORY: s/p reduction attempt. TECHNIQUE: 2D digital imaging was performed of the right finger. Three views were obtained. PA/AP, oblique, and lateral views were obtained. COMPARISON: CR,XR XR FINGER RT LITTLE from 06/15/2023 FINDINGS: BONES: No acute fracture is present. No bony destructive lesion is seen. JOINTS: There has been interval reduction of the PIP joint dislocation. Alignment of the joint is wi thin normal limits. No dislocation is seen. SOFT TISSUE: Normal. IMPRESSION: Successful reduction of the PIP joint dislocation. No acute fracture or dislocation is seen of the r ight little finger. DATA REPOSITORY: RADIATION DOSE DELIVERED:
--- NOTE | 2023-06-15 19:59 | NUR.NOTE ---
Accessed PENDING SALE TO [facility] for tetanus status.Nursing Note:
--- NOTE | 2023-06-15 20:00 | NUR.NOTE ---
Stack splint applied. PMS intact. PT tolerated well. Nursing Note:
--- NOTE | 2023-06-15 20:11 | DI.VRAD_ITS ---
PROCEDURE INFORMATION: Exam: XR Right Finger(s) Exam date and time: 06/15/2023 7:30 PM Age: 53 years old Clinical indication: Injury or trauma; Other: Hit by his horse; Sprain or strain; Right; Little finger; Injury date: 06/15/2023; Injury details: PT states his horse reared up and hit his hand TECHNIQUE: Imaging protocol: Radiologic exam of the right fingers. Views: Minimum 2 views. COMPARISON: No relevant prior studies available. FINDINGS: Bones/joints: There is anterior dislocation of the 5th middle phalanx with respect to the proximal phalanx and associated persistent flexion deformity at the 5th PIP joint. Osseous alignment is otherwise normal. No definite acute fracture. No significant arthritic change. Soft tissues: Normal. IMPRESSION: Dislocation and associated flexion deformity at the 5th PIP joint. No definite fracture. Dictated and Authenticated by: Nolberto Johnston MD. Ordering:BRENDAN Prado MD
--- NOTE | 2023-06-15 20:47 | DI.VRAD_ITS ---
PROCEDURE INFORMATION: Exam: XR Right Finger(s) Exam date and time: 06/15/2023 8:03 PM Age: 53 years old Clinical indication: Abnormal findings; Abnormal imaging study of the limbs; S/P reduction attempt TECHNIQUE: Imaging protocol: Radiologic exam of the right fingers. Views: Minimum 2 views. COMPARISON: CR XR FINGER RT LITTLE 06/15/2023 7:30 PM FINDINGS: Tubes, catheters and devices: Splint now in place. Bones/joints: Been interval reduction of previously described dislocation of the 5th PIP joint. Osseous alignment now appears normal. No acute fracture. Soft tissues: Normal. IMPRESSION: Now normal alignment of 5th phalanges. No acute fracture evident. Dictated and Authenticated by: Nolberto Johnston MD. Ordering:BRENDAN Prado MD
[2023-06-15 20:51] VITALS: PULSE 88; RESP 18
== END 2023-06-15 20:53 | disposition home or self-care (01) ==
PROVIDERS: Emergency Provider Emergency Medicine; PCP Nurse Practitioner Family
DX: S63.286A Dislocation of proximal interphalangeal joint of right little finger, initial encounter (principal); W23.0XXA Caught, crushed, jammed, or pinched between moving objects, initial encounter
CPT/HCPCS: 26770; 29130; 73140; 99284; 99283

== ENCOUNTER 2023-09-26 19:23 | Outpatient (CLI) | payer BC, SELFPAY ==
[2023-09-26 16:29] LABS: INR 2.9 (0.9-1.1); Prothrombin Time 26.5 sec (9.1-11.1)
--- OUTSIDE RECORDS SUMMARY | 2023-09-26 19:25 | XMS_ITS | Clinical Summary ---
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 Reported on 05/14/2016 06/23/2010 Active metoprolol succinate (TOPROL-XL) 100 mg XL tablet Take 100 mg by mouth daily. Active Active Problems Problem Noted Date Diagnosed Date S/P ascending aortic replacement 08/13/2011 Overview (08/13/2011): 28 mm Hemashield graft 2001 Bicuspid aortic valve Overview (04/19/2014): Status post [facility] aortic valve replacement on June 08, 1999. a. Echocardiogram in September 2000: LV dimension 5.9, normal LV function, normally functioning prosthesis, dilated ascending aorta 5.3. b. Echocardiogram on May 17, 2001: Normal LV size, normally functioning [facility] prosthesis, persistently dilated ascending aorta at 5.5. c. The patient has a small niesha-valve leak which has been present since surgery. d. Repeat echocardiogram, September 13, 2002: Stable and normally functioning aortic valve prosthesis; stable left ventricular function; stable left ventricular size and aortic size. e. Echocardiogram, October 14, 2003: Normally functioning aortic valve prosthesis; stable left ventricular function and size; ascending aortic size unchanged since aortic root replacement. f. Echocardiogram, February 01, 2005: Normally functioning aortic valve prosthesis with normalization of left ventricular size. Normal LVEF. Ascending aortic size unchanged. g. Echocardiogram, 01/31/07: Left ventricular is upper limits of normal in size when corrected for body surface area. There is normal global left ventricular systolic function. Ejection fraction is estimated to be 65%; mechanical aortic valve prosthesis, [facility], with normal function. Mean trans-valvular gradient is 19mmHg. DOI is .35. Diastolic function is normal. PA pressure is normal. Stable ascending aortic size. h. Echocardiogram, 06/24/09: Left ventricle is moderately dilated; there is normal global left ventricular systolic function; ejection fraction is estimated to be 70%; mechanical aortic valve prosthesis, [facility], with normal function; mean trans-valvular gradient is 19 mmHg; DOI 0.378; diastolic function is normal; PA pressure is normal; stable ascending aortic size. I. Echocardiogram 2012: LV is moderately dilated. LVEF 66%. [facility] aortic valve normal function. Gradients 30/16. DOI 0.36 J. Echocardiogram 04/19/2014: LV is moderately dilated. LVEF 60%. Mechanical [facility]. Normal function. Gradients 30/15. DOI 0.27. Mild MR. Social History Tobacco Use Types Packs/Day Years Used Date Smoking Tobacco: Never Smokeless Tobacco: Never Alcohol Use Standard Drinks/Week Comments Not Asked 0 (1 standard drink = 0.6 oz pur e alcohol) Sex and Gender Information Value Date Recorded Sex Assigned at Not on file Gender Identity Not on file Sexual Orientation Not on file Last Filed Vital Signs Vital Sign Reading Time Taken Comments Blood Pressure 123/56 10/04/2017 1:35 PM EDT Pulse 60 10/04/2017 1:35 PM EDT Temperature - - Respiratory Rate - - Oxygen Saturation 97% 10/04/2017 1:35 PM EDT Inhaled Oxygen Concentration - - Weight 105.8 kg (233 lb 4.8 oz) 10/04/2017 1:35 PM EDT Height 185.4 cm (6' 1) 10/04/2017 1:35 PM EDT Body Mass Index 30.78 10/04/2017 1:35 PM EDT Plan of Treatment Health Maintenance Due Date Last Done Comments CT Colonography 1970 Colonoscopy 1970 Colorectal Cancer Screening 1970 FIT DNA 1970 FIT 1970 Sigmoidoscopy (10 year) with FIT yearly 1970 Sigmoidoscopy 1970 HIV screen 1988 Hepatitis C Screening 1988 Lipid Screening 1988 Hepatitis B vaccine (0-59 yrs) (1) 1989 Tdap adult 1989 Tetanus vaccine 1989 Zoster vaccine (1 of 2) 2020 Covid-19 Vaccine (1 - season) 2022 Influenza (Flu) vaccine (1 o f 1 - Influenza standard series) 10/23/2023 Care Teams 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
--- OUTSIDE RECORDS SUMMARY | 2023-09-26 19:25 | XMS_ITS | Encounter Summary ---
Author Organization [facility] Address [facility] [place] [address] Care Team Providers Care Government Property Inspector Name Role Phone Tamy Cagle APRN Primary Care Provider [phone] Encounter Details Date Type Department Care Team (Latest Contact Info) Description 05/14/2016 12:42 PM EDT - 05/14/2016 3:29 PM EDT Hospital Encounter Non-Invasive [place] [id number] Mark Calabrese MD [facility] [address] Bicuspid aortic valve Discharge Disposition: Home Social History Tobacco Use Types Packs/Day Years Used Date Smoking Tobacco: Never Smokeless Tobacco: Never Alcohol Use Standard Drinks/Week Comments Not Asked 0 (1 standard drink = 0.6 oz pur e alcohol) Sex and Gender Information Value Date Recorded Sex Assigned at Not on file Gender Identity Not on file Sexual Orientation Not on file documented as of this encounter Medications at Time of Discharge Medication Sig Dispensed Refills Start Date End Date metoprolol succinate (TOPROL-XL) 100 mg XL tablet Take 100 mg by mouth daily. amoxicillin (AMOXIL) 500 mg capsule Take 500 mg by mouth as needed. Reported on 05/14/2016 06/23/2010 warfarin (COUMADIN) 5 mg tablet 5.0 mg , PO, QD TAKE DIRECTED 06/24/2009 documented as of this encounter Plan of Treatment Not on file documented as of this encounter Procedures Procedure Name Priority Date/Time Associated Diagnosis Comments ECHO COMPLETE Routine 05/14/2016 1:38 PM EDT Bicuspid aortic valve documented in this encounter Results * ECHO COMPLETE (05/14/2016 1:38 PM EDT) EF 66 HEARTLAB SYSTEM Anatomical Region Laterality Modality Other 05/14/2016 Narrative 05/14/2016 1:50 PM EDT Procedure: ?Transthoracic Echocardiogram Patient: ?ASHLEY Rose ? (Age): 1970(46y) Med Rec#: ? [id number] ?Sex: ?M ? [place] Loc[place] ? [facility] [place] ?Ht / Wt: ??185(cm)/103(kg) Pt. Loc: ?Echo Lab ?BSA: ?2.27 Study Date: ?? 05/14/2016 ?Pt. Type: Outpatient Tape: ? Referring: Mark Calabrese ([id number]) Reading: Marco Gregory ([id number]) Bonding Machine Setter: Soco Menon Diagnosis: *ICD-10-PCS Congenital insufficiency of aortic valve (Q23.1) CPT Codes: *Echo Full (51375) *Spectral Doppler (11826) *Color Doppler (15966) BP: ? 135/72 SUMMARY: 1. There is normal global left ventricular systolic function. ??The quantitative left ventricular ejection fraction by biplane Chan's method is 66%. There are no left ventricular segmental wall motion abnormalities. 2. Right ventricular chamber size, wall thickness, and systolic function are within normal limits. 3. A St. Judes mechanical aortic valve prosthesis is present. ??The mean trans-valvular gradient across ??the aortic valve is 19 mmHg. There is a trace amount of prosthetic aortic valve regurgitation present. 4. See remainder of report for additional findings. Findings ? : Left Ventricle: ? The left ventricle is moderately dilated. ?Left ventricular wall thickness is normal. ?There is normal global left ventricular systolic function. ?The quantitative left ventricular ejection fraction by biplane Chan's method is 66%. ?There are no left ventricular segmental wall motion abnormalities. ?Assessment of diastolic function is indeterminate. Left Atrium: ? The left atrium is normal in size. Right Ventricle: ? Right ventricular chamber size, wall thickness, and systolic function are within normal limits. ?Pulmonary artery hypertension could not be assessed due to inadequate tricuspid regurgitation jet. ?The estimated right atrial pressure is 3 mmHg. Right Atrium: ? The right atrium is mildly dilated. Aortic Valve: ? The peak instantaneous trans-valvular gradient across the aortic valve is 35 mmHg. ?The mean trans-valvular gradient across ??the aortic valve is 19 mmHg. ?The size of the prosthetic aortic valve is 27mm. ?The prosthetic aortic valve was implanted on 06/08/1999. ?A St. Judes mechanical aortic valve prosthesis is present. ?There is a trace amount of prosthetic aortic valve regurgitation present. Mitral Valve: ? The mitral valve leaflets appear normal. ?There is mild (1+/4+) mitral regurgitation present. Tricuspid Valve: ? The tricuspid valve leaflets are morphologically normal. ?There is trace tricuspid regurgitation present. Pulmonic Valve: ? The pulmonic valve appears normal. ?There is trace pulmonic regurgitation present. Pericardium: ? The pericardium appears normal and there is no evidence of a pericardial effusion. Aorta: ? The aortic root is normal in size. ?The ascending aorta is normal in size. Pulmonary Artery: ? The main pulmonary artery appears normal. Venous: ? The inferior vena cava appears normal in size. ?There is a greater than 50% respiratory change in the inferior vena cava dimension. Misc: ? See remainder of report for additional findings. ?Two-dimensional echo, spectral Doppler and color Doppler performed. Chambers 2D ?Value ?Units (Range) ? IVSd (2D) ? 1 ?cm ? LVPWd (2D) ?1.1 ?cm ? IVS:LVPW ratio (2D) 0.9 ?ratio ? LVIDd (2D) ?6.2 ?cm ? LVIDs (2D) ?4.1 ?cm ? LVIDd (2D) index ?2.7 ?cm/m2 ? LVIDs (2D) index ?1.8 ?cm/m2 ? LV FS (2D) ?33 ? % ? EF Teichholz (2D) ?? 61 ? % ? Ao root diameter (2D3.3 ?cm (2.1 - 3.6) ? Ascending Ao ?3.3 ?cm (2 - 3.5) ? Volumes/Mass ?Value ?Units (Range) ? LA Area 4 CH ?20.9 ? cm2 (<21) ? LA ESV BP (A/L) inde32.4 ? ml/m2 ? RA AREA 4CH ? 24.9 ? cm2 ? LA ESV SP 4CH (MOD) 62.2 ? ml ? LA ESV SP 2CH (MOD) 61.5 ? ml ? LV ESV SP 4CH (MOD) 93.3 ? ml ? LV ESV SP 2CH (MOD) 52.5 ? ml ? LV EDV BP ? 204.4 ?ml ? LV ESV BP ? 69.8 ? ml ? BP EF (MOD) ? 66 ? % ? LV mass (2D) ?287.6 ?g ? LV mass (2D) index ??126.7 ?g/m2 ? Aortic Valve ?Value ?Units (Range) ? AV Vmax ? 3 ?m/sec ? AV VTI ?58.9 ? cm ? AV peak gradient ?35 ? mmHg ? AV mean gradient ?19 ? mmHg ? LVOT Vmax ? 1.1 ?m/sec ? LVOT VTI ?24.4 ? cm ? LVOT peak gradient ??4.8 ?mmHg ? LVOT mean gradient ??2.9 ?mmHg ? DOI (VTI) ? 0.4 ?ratio ? DOI (Vmax) ?0.4 ?ratio ? Tricuspid Valve ?Value ?Units (Range) ? RAP ? 3 ?mmHg ? Measurement Trending Name ? 05/14/2016 ? LV EDV BP ?204.44 LVIDd (2D) ? 6.16 LV ESV BP ?69.83 LVIDs (2D) ? 4.11 Wall Motion: Segment Name ?Rest ? Base-Anteroseptal ?? Normal ? Base-Anterior ? Normal ? Base-Anterolateral ??Normal ? Base-Posterolateral Normal ? Base-Inferior ? Normal ? Base-Inferoseptal ?? Normal ? Mid-Anteroseptal ?Normal ? Mid-Anterior ?Normal ? Mid-Anterolateral ?? Normal ? Mid-Posterolateral ??Normal ? Mid-Inferior ?Normal ? Mid-Inferoseptal ?Normal ? [place]-Septal ? Normal ? [place]-Anterior ? Normal ? [place]-Lateral ?Normal ? [place]-Inferior ? Normal ? [place]-Tip ?Normal ? This report has been electronically signed by: Marco Gregory M.D. ? 05/14/2016 13:50:37 Images reviewed and interpretation verified [facility] Procedure Note Marco Gregory MD - 05/14/2016 Procedure: Transthoracic Echocardiogram Patient: ASHLEY GARCIA(Age): 1970(46y) Med Rec#: [id number] Sex: M [place] Loc[place] [facility] [place] Ht / Wt: 185(cm)/103(kg) Pt. Loc: Echo Lab BSA: 2.27 Study Date: 05/14/2016 Pt. Type: Outpatient Tape: Referring: Mark Calabrese ([id number]) Reading: Marco Gregory ([id number]) Bonding Machine Setter: Soco Menon Diagnosis: *ICD-10-PCS Congenital insufficiency of aortic valve (Q23.1) CPT Codes: *Echo Full (59044) *Spectral Doppler (14572) *Color Doppler (47566) BP: 135/72 SUMMARY: 1. There is normal global left ventricular systolic function. The quantitative left ventricular ejection fraction by biplane Chan's method is 66%. There are no left ventricular segmental wall motion abnormalities. 2. Right ventricular chamber size, wall thickness, and systolic function are within normal limits. 3. A St. Judes mechanical aortic valve prosthesis is present. The mean trans-valvular gradient across the aortic valve is 19 mmHg. There is a trace amount of prosthetic aortic valve regurgitation present. 4. See remainder of report for additional findings. Findings : Left Ventricle: The left ventricle is moderately dilated. Left ventricular wall thickness is normal. There is normal global left ventricular systolic function. The quantitative left ventricular ejection fraction by biplane Chan's method is 66%. There are no left ventricular segmental wall motion abnormalities. Assessment of diastolic function is indeterminate. Left Atrium: The left atrium is normal in size. Right Ventricle: Right ventricular chamber size, wall thickness, and systolic function are within normal limits. Pulmonary artery hypertension could not be assessed due to inadequate tricuspid regurgitation jet. The estimated right atrial pressure is 3 mmHg. Right Atrium: The right atrium is mildly dilated. Aortic Valve: The peak instantaneous trans-valvular gradient across the aortic valve is 35 mmHg. The mean trans-valvular gradient across the aortic valve is 19 mmHg. The size of the prosthetic aortic valve is 27mm. The prosthetic aortic valve was implanted on 06/08/1999. A St. Judes mechanical aortic valve prosthesis is present. There is a trace amount of prosthetic aortic valve regurgitation present. Mitral Valve: The mitral valve leaflets appear normal. There is mild (1+/4+) mitral regurgitation present. Tricuspid Valve: The tricuspid valve leaflets are morphologically normal. There is trace tricuspid regurgitation present. Pulmonic Valve: The pulmonic valve appears normal. There is trace pulmonic regurgitation present. Pericardium: The pericardium appears normal and there is no evidence of a pericardial effusion. Aorta: The aortic root is normal in size. The ascending aorta is normal in size. Pulmonary Artery: The main pulmonary artery appears normal. Venous: The inferior vena cava appears normal in size. There is a greater than 50% respiratory change in the inferior vena cava dimension. Misc: See remainder of report for additional findings. Two-dimensional echo, spectral Doppler and color Doppler performed. Chambers 2D Value Units (Range) IVSd (2D) 1 cm LVPWd (2D) 1.1 cm IVS:LVPW ratio (2D) 0.9 ratio LVIDd (2D) 6.2 cm LVIDs (2D) 4.1 cm LVIDd (2D) index 2.7 cm/m2 LVIDs (2D) index 1.8 cm/m2 LV FS (2D) 33 % EF Teichholz (2D) 61 % Ao root diameter (2D3.3 cm (2.1 - 3.6) Ascending Ao 3.3 cm (2 - 3.5) Volumes/Mass Value Units (Range) LA Area 4 CH 20.9 cm2 (<21) LA ESV BP (A/L) inde32.4 ml/m2 RA AREA 4CH 24.9 cm2 LA ESV SP 4CH (MOD) 62.2 ml LA ESV SP 2CH (MOD) 61.5 ml LV ESV SP 4CH (MOD) 93.3 ml LV ESV SP 2CH (MOD) 52.5 ml LV EDV BP 204.4 ml LV ESV BP 69.8 ml BP EF (MOD) 66 % LV mass (2D) 287.6 g LV mass (2D) index 126.7 g/m2 Aortic Valve Value Units (Range) AV Vmax 3 m/sec AV VTI 58.9 cm AV peak gradient 35 mmHg AV mean gradient 19 mmHg LVOT Vmax 1.1 m/sec LVOT VTI 24.4 cm LVOT peak gradient 4.8 mmHg LVOT mean gradient 2.9 mmHg DOI (VTI) 0.4 ratio DOI (Vmax) 0.4 ratio Tricuspid Valve Value Units (Range) RAP 3 mmHg Measurement Trending Name 05/14/2016 LV EDV BP 204.44 LVIDd (2D) 6.16 LV ESV BP 69.83 LVIDs (2D) 4.11 Wall Motion: Segment Name Rest Base-Anteroseptal Normal Base-Anterior Normal Base-Anterolateral Normal Base-Posterolateral Normal Base-Inferior Normal Base-Inferoseptal Normal Mid-Anteroseptal Normal Mid-Anterior Normal Mid-Anterolateral Normal Mid-Posterolateral Normal Mid-Inferior Normal Mid-Inferoseptal Normal [place]-Septal Normal [place]-Anterior Normal [place]-Lateral Normal [place]-Inferior Normal [place]-Tip Normal This report has been electronically signed by: Marco Gregory M.D. 05/14/2016 13:50:37 Images reviewed and interpretation verified [facility] Mark Calabrese MD ECHO ORDERABLES documented in this encounter Visit Diagnoses Diagnosis Bicuspid aortic valve Congenital insufficiency of aortic valve documented in this encounter Care Teams Government Property Inspector Relationship Specialty Start Date End Date Tamy Cagle, PPAP COORDINATOR [address] [place] [address] PCP - General Family Medicine 05/14/16 documented as of this encounter
--- OUTSIDE RECORDS SUMMARY | 2023-09-26 19:25 | XMS_ITS | Encounter Summary ---
Author Organization [facility] Address [facility] [place] [address] Care Team Providers Care Streetcar Repairer Helper Name Role Phone Zan Granados MD Primary Care Provider [phone] Reason for Visit * Reason Comments Cardiac Valve Problem Encounter Details Date Type Department Care Team (Late st Contact Info) Description 04/19/2014 9:40 AM EST Follow-Up Cardiology at [address] [id number] CLINIC, [place] MD [facility] [place] [address] Bicuspid aortic valve Discharge Disposition: Home Social [...] on file documented as of this encounter Last Filed Vital Signs Vital Sign Reading Time Taken Comments Blood Pressure 110/70 04/19/2014 9:02 AM EST Pulse 45 04/19/2014 9:02 AM EST Temperature - - Respiratory Rate - - Oxygen Saturation 97% 04/19/2014 9:02 AM EST Inhaled Oxygen Concentration - - Weight 103.9 kg (229 lb) 04/19/2014 9:02 AM EST Height 185.4 cm (6' 1) 04/19/2014 9:02 AM EST Body Mass Index 30.21 04/19/2014 9:02 AM EST documented in this encounter Progress Notes * Weston Ross MD - 04/19/2014 10:42 AM EST Cardiology Clinic Interval Visit Neville Bishop is a 44 y.o. male s/p aortic valve replacement in 1999 and ascending aortic replacement in 2001. The patient had an echo earlier today which showed LVEF 60% with similar aortic valve gradients as compared with 2013 echo. The patient is feeling great. He has no chest pain or shortness of breath. 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 No orthopnea or PND. No chest palpitations or syncope. His notes at night she can hear his valve clicking more prominent in two occasions (one time last month, and one time this month). She described it as a four beat run with a pause and big click. He notes that he switched short-acting metoprolol (50mg bid) to long acting toprol but got a 50mg XL. He just noticed it's a different dose and his PCP just changed it to 100mg XL in which he took over past week. He felt no difference between the two doses. Patient Active Problem List Diagnosis ??? S/P ascending aortic replacement 28 mm Hemashield graft 2001 ??? Bicuspid aortic valve Status post St. Arthur aortic valve replacement [...] Normal function. Gradients 30/15. DOI 0.27. Mild MRGanesh Delong Current outpatient prescriptions:metoprolol succinate (TOPROL-XL) 100 mg XL tablet, Take 100 mg by mouth daily., Disp: , Rfl: ; amoxicillin (AMOXIL) 500 mg capsule, Take 500 mg by mouth as needed. Pre dental , Disp: , Rfl: ; warfarin (COUMADIN) 5 mg tablet, 5.0 mg , PO, QD TAKE DIRECTED, Disp: ,Rfl: ROS Interval ROS: General/Constitutional: No fevers/chills, No weight changes, No fatigue/weakness, No night sweats, OK exercise tolerance HEENT: No vision changes, No dental problems Skin: No rashes, No leg ulcers Cardiovascular: No chest pain, No palpitations, No leg swelling, No Syncope, No Orthopnea/PND, No calf pain Lungs: No shortness of breath, No cough, No wheezing, No sputum spoduction Gastrointestinal: No bloody stools, No back tarry stools, No GERD symptoms, Normal bowel movements Genitourinary: No dysuria, No hematuria, Urinating well Musculakseletal: No joint pain, No muscle/limb weakness Neuro: No severe headaches, No seizure, No dizziness/lightheadedness, No TIA symptoms Heme/Coagulation: No easy brusing, No easy bleeding, No anemia Endocrine: Blood sugars OK, No thyroid problems/goiter PE BP 110/70 Pulse 45 Ht 185.4 cm (6' 1) Wt 103.874 kg (229 lb) BMI 30.22 kg/m2 SpO2 97% General: He is a well developed, well nourished white male in no acute distress. Neck: Carotids are 2+ with a transmitted murmur bilaterally. There is no JVD or hepatojugular reflux. Lungs: Clear to auscultation. Cardiac exam: Rhythm is regular. There is normal functioning aortic valve prosthesis with crisp valve sounds. There is a systolic ejection murmur present. There is no S3 or S4. I cannot appreciate a diastolic blowing murmur. Abdomen: Soft and nontender. Bowel sounds are normoactive. There is no hepatosplenomegaly. Extremities: Without edema. Pulses are intact Interval ROS: General/Constitutional: No fevers/chills, No weight changes, No fatigue/weakness, No night sweats, OK exercise tolerance HEENT: No vision changes, No dental problems Skin: No rashes, No leg ulcers Cardiovascular: No chest pain, No palpitations, No leg swelling, No Syncope, No Orthopnea/PND, No calf pain Lungs: No shortness of breath, No cough, No wheezing, No sputum spoduction Gastrointestinal: No bloody stools, No back tarry stools, No GERD symptoms, Normal bowel movements Genitourinary: No dysuria, No hematuria, Urinating well Musculakseletal: No joint pain, No muscle/limb weakness Neuro: No severe headaches, No seizure, No dizziness/lightheadedness, No TIA symptoms Heme/Coagulation: No easy brusing, No easy bleeding, No anemia Endocrine: Blood sugars OK, No thyroid problems/goiter General: He is a well developed, well nourished white male in no acute distress. Neck: Carotids are 2+ with a transmitted murmur bilaterally. There is no JVD or hepatojugular reflux. Lungs: Clear to auscultation. Cardiac exam: Rhythm is regular. There is normal functioning aortic valve prosthesis with crisp valve sounds. There is a systolic ejection murmur present. There is no S3 or S4. I cannot appreciate a diastolic blowing murmur. Abdomen: Soft and nontender. Bowel sounds are normoactive. There is no hepatosplenomegaly. Extremities: Without edema. Pulses are intact ASSESSMENT and PLAN Assessment: 1. Status post [employer]. Arthur aortic valve prosthesis: Prosthesis is functioning normally. The patient is [place] [employer] Functional Class I. He uses antibiotic prophylaxis regularly. He is on Coumadin without symptoms. Continue current management. 2. Status post ascending aortic graft: Stable on echo today. He is doing well. Blood pressure is controlled. 3. Questionable arrhythmias. If the feels it's more frequent, she will call. Will consider a ZIOPATCH. Would agree with a higher dose of metoprolol (100mg rather than 50mg) if he can tolerate it. Plan: Continue current medical management, return office visit in one year. documented in this encounter Plan of Treatment Not on file documented as of this encounter Visit Diagnoses Diagnosis Bicuspid aortic valve Congenital insufficiency of aortic valve documented in this encounter Care Teams Streetcar Repairer Helper Relationship Specialty Start Date End Date Zan Granados MD PCP - General 01/13/10 03/24/15 documented as of this encounter
--- OUTSIDE RECORDS SUMMARY | 2023-09-26 19:25 | XMS_ITS | Encounter Summary ---
Author Organization [facility] Address [facility] [place] [address] Care Team Providers Care Outfitter Cabin Name Role Phone Tamy Cagle APRN Primary Care Provider [phone] Encounter Details Date Type Department Care Team (Latest Contact Info) Description 05/14/2016 3:30 PM EDT - 05/14/2016 11:59 PM EDT Hospital Encounter Non-Invasive [place] [phone] Mark Calabrese MD [facility] [place] [address] Bicuspid aortic valve Discharge Disposition: Home Social [...] Procedure Name Priority Date/Time Associated Diagnosis Comments HOLTER MONITOR 48 HOUR Routine 05/17/2016 8:25 AM EDT Bicuspid aortic valve documented in this encounter Results * Holter Monitor 48hr (05/17/2016 8:25 AM EDT) Anatomical Region Laterality Modality Other Narrative 05/20/2016 10:53 AM EDT This is a holter monitor report for Neville Bishop 1970 47 hours and 59 minutes of recording, hookup date April The minimum heart rate is 37 bpm, this is sinus bradycardia at 3:16 AM on 16 May 2016 The maximum heart rate is 123 bpm, this is sinus tachycardia at 9:35 AM on 15 May 2016 The average heart rate is 59 bpm. Less than 1% of all beats are in tachycardia, greater than 100 bpm 40% of all beats are in bradycardia, less than 60 bpm 21,490 premature ventricular beats (12%);, 8 couplets, 12,137 bigeminal cycles The ventricular ectopy was less pronounced between the hours of midnight and 5 AM 190 premature atrial beats (less than 1%) There is one brief episode of nonsustained supraventricular tachycardia, 3 beats at 107 bpm, this was long RP in morphology Symptoms The patient diary indicated did not feel anything abnormal There was one patient triggered event, this correlates with sinus rhythm at 60 bpm (possibly an accidental button press) Impression A) The predominant rhythm is sinus rhythm B) Frequent premature ventricular contractions, mostly monomorphic (12% of total) C) No patient diary events Mark Calabrese MD CARDIAC SERVICES ORD ERABLES documented in this encounter Visit Diagnoses Diagnosis Bicuspid aortic valve Congenital insufficiency of aortic valve documented in this encounter Care Teams Outfitter Cabin Relationship Specialty Start Date End Date Tamy Cagle, RADIO ASSEMBLER [address] [place] [address] PCP - General Family Medicine 05/14/16 documented as of this encounter
--- OUTSIDE RECORDS SUMMARY | 2023-09-26 19:25 | XMS_ITS | Encounter Summary ---
Author Organization [facility] Address [facility] [place] [address] Care Team Providers Care Senior Cyber Intelligence Analyst Name Role Phone Tamy Cagle APRN Primary Care Provider [phone] Encounter Details Date Type Department Care Team (Late st Contact Info) Description 09/30/2017 Orders Only Cardiology at [address] [phone] Mark Calabrese MD [facility] [place] [address] Bicuspid aortic valve (Primary Dx); S/P ascending aortic replacement Social History Tobacco Use Types Packs/Day Years Used Date Smoking Tobacco: Never Smokeless Tobacco: Never Alcohol Use Standard Drinks/Week Comments Not Asked 0 (1 standard drink = 0.6 oz pur e alcohol) Sex and Gender Information Value Date Recorded Sex Assigned at Not on file Gender Identity Not on file Sexual Orientation Not on file documented as of this encounter Plan of Treatment Not on file documented as of this encounter Results * EKG 12 Lead (10/04/2017 1:56 PM EDT) Ventricular rate 54 BPM MUSE SYSTEM Atrial Rate 54 BPM MUSE SYSTEM P-R Interval 174 ms MUSE SYSTEM QRS Duration 124 ms MUSE SYSTEM Q-T Interval 436 ms MUSE SYSTEM QTC Calculated (Bezet) 413 ms MUSE SYSTEM Calculated P [place] 53 degrees MUSE SYSTEM Calculated R [place] 72 degrees MUSE SYSTEM Calculated T [place] 70 degrees MUSE SYSTEM INTERPRETATION Sinus bradycardia Incomplete right bundle branch block Borderline ECG When compared with ECG of 14-MAY-2016 15:20, Premature ventricular complexes are no longer Present Confirmed by MD Bernardo, Kiel Franklin ([id number]) on 10/04/2017 2:46:08 PM MUSE SYSTEM 10/04/2017 1:56 PM EDT 10/04/2017 2:46 PM EDT Mark Calabrese MD ECG ORDERABLES MUSE SYSTEM documented in this encounter Visit Diagnoses Diagnosis Bicuspid aortic valve- Primary Congenital insufficiency of aortic valve S/P ascending aortic replacement Blood vessel replaced by other means documented in this encounter Care Teams Senior Cyber Intelligence Analyst Relationship Specialty Start Date End Date Tamy Cagle, SKIN PEELING MACHINE OPERATOR [address] [facility] [place] [address] PCP - General Family Medicine 05/14/16 documented as of this encounter
--- OUTSIDE RECORDS SUMMARY | 2023-09-26 19:25 | XMS_ITS | Encounter Summary ---
Author Organization [facility] Address [facility] [place] [address] Care Team Providers Care Building Construction Professor Name Role Phone Zan Granados MD Primary Care Provider [phone] Encounter Details Date Type Department Care Team ([facility] st Contact Info) Description 04/01/2014 Orders Only Cardiology at [address] [place] [address] Dustin Smith Heart valve replaced by other means Social History Tobacco Use Types Packs/Day Years [...] documented as of this encounter Results * Echocardiogram Transthoracic(Leb) (04/19/2014 9:06 AM EST) EF 54 HEARTLAB SYSTEM Anatomical Region Laterality Modality Other 04/19/2014 Narrative 04/19/2014 9:23 AM EST Amended Report Procedure: ? Transthoracic Echocardiogram Patient: ? ASHLEY Rose ?(Age): 1970(44) Med Rec#: ?[id number] ? Sex: ?M ? Site Loc: ?[facility] [place] ? Ht / Wt: ??185(cm)/99(kg) Pt. Loc: ? Echo Lab ? BSA: ?2.26 Study Date: ?04/19/2014 ? Pt. Type: Outpatient Tape: ? Referring: Weston Ross ([id number]) Rn Family: Nahomi Godinez Diagnosis:CPT Code(s): ??Color Doppler (26067), ??Echo Full (42851), Spectral Doppler (59530), Indication(s): ??Aortic prosthesis, F/U Rhythm: HR ?BP ?136/71 ?? SUMMARY: 1. The left ventricle is moderately dilated. Left ventricular wall thickness is normal. There are no left ventricular segmental wall motion abnormalities. There is normal global left ventricular systolic function. There is normal global left ventricular systolic function. Ejection fraction is estimated to be 60% and unchanged by direct comparison to the prior study of 08/29/12. Left sided filling pressure could not be assessed by Doppler. 2. Right ventricular chamber size, wall thickness, and systolic function are within normal limits. 3. The mechanical prosthetic aortic valve prosthesis is functioning normally with expected regurgitant jet pattern. The peak instantaneous trans-valvular gradient across ??the aortic valve is 30 mmHg. The mean trans-valvular gradient across ??the aortic valve is 15 mmHg. These gradients are unchanged compared to those on the prior report from 08/29/12. 4. There is mild (1+/4+) mitral regurgitation present. 5. See remainder of report for additional findings. FINDINGS: Left Ventricle ?The left ventricle is moderately dilated. ?Left ventricular wall thickness is normal. ?There is normal global left ventricular systolic function. ??Ejection fraction is estimated to be 60%. ?There are no left ventricular segmental wall motion abnormalities. ?Left sided filling pressure could not be assessed by Doppler. Left Atrium ?The left atrium is normal in size.(31 ml/m2) Right Ventricle ?Right ventricular chamber size, wall thickness, and systolic function are within normal limits. ?Pulmonary artery hypertension could not be assessed due to inadequate tricuspid regurgitation jet. Right Atrium ?The right atrium is mildly dilated. Aortic Valve ?The peak instantaneous trans-valvular gradient across ??the aortic valve is 30 mmHg. ?The mean trans-valvular gradient across ??the aortic valve is 15 mmHg. ?The size of the prosthetic aortic valve is 27mm. ?The prosthetic aortic valve was implanted on 06/08/1999. ?A [employer] mechanical aortic valve prosthesis is present. ?The mechanical prosthetic aortic valve prosthesis is functioning normally with expected regurgitant jet pattern. ?There is a trace amount of prosthetic aortic valve regurgitation present. Mitral Valve ?The mitral valve appears normal in structure and function. ?Redundant mitral valve chordae are present. ?There is mild (1+/4+) mitral regurgitation present. Tricuspid Valve ?The tricuspid valve appears normal in structure and function. ?There is trace tricuspid regurgitation present. Pulmonic Valve ?The pulmonic valve appears normal in structure and function. ?There is trace pulmonic regurgitation present. Pericardium ?The pericardium appears normal and there is no evidence of a pericardial effusion. Aorta ?There is mild dilatation of the aortic root. ?The ascending aorta is normal in size. Pulmonary Artery ?The main pulmonary artery appears normal. Venous ?The inferior vena cava appears normal. ?There is a greater than 50% respiratory change in the inferior vena cava dimension. Misc ?Two-dimensional echo, spectral Doppler and color Doppler performed. Wall Motion: Segment Name ?Rest ? Base-Anteroseptal ?? Normal ? Base-Anterior ? Normal ? Base-Anterolateral ??Normal ? Base-Posterolateral Normal ? Base-Inferior ? Normal ? Base-Inferoseptal ?? Normal ? Mid-Anteroseptal ?Normal ? Mid-Anterior ?Normal ? Mid-Anterolateral ?? Normal ? Mid-Posterolateral ??Normal ? Mid-Inferior ?Normal ? Mid-Inferoseptal ?Normal ? [place]-Septal ? Normal ? [place]-Anterior ? Normal ? [place]-Lateral ?Normal ? [place]-Inferior ? Normal ? [place]-Tip ?Normal ? Chambers ?Value ?Units (Range) ? EF ??Bi-p Simp ? 54 ? % (55 to 80) ? IVSd 2D ? 1 ?cm ? LVIDd 2D ?6.1 ?cm ? PWd 2D ?1 ?cm ? LVIDs 2D ?4.2 ?cm ? LVFS 2D ? 31 ? % ? LA area ? 23.4 ? cm2 (<21) ? RA area ? 22 ? cm2 (<18) ? Ao root ? 3.8 ?cm (2.1 to 3.6) ? Asc Ao ?3 ?cm (2 to 3.5) ? Aortic Valve ?Value ?Units (Range) ? AV grad P ? 30 ? mmHg ? AV grad M ? 15 ? mmHg ? DOI ? 0.27 ? AV pk kindra ? 2.7 ?m/sec (1 to 1.7) ? LVOT pk kindra ? 0.73 ? m/sec (0.7 to 1.1) ?? Mitral Valve ?Value ?Units (Range) ? E peak ?0.99 ? m/sec ? E/A ratio ? 4.1 ?ratio ? MVDT ?192 ?msec ? E1 ?0.11 ? m/sec ? E/E1 ?9 ?ratio ? Tricuspid/Pulmonic Valves ?Value ?Units (Range) ? RAP ? 3 ?mmHg ? This report has been electronically signed by: Devin Billingsley MD ? 04/19/2014 09:51:34 Images reviewed and interpretation verified [facility] Cardiac Ultrasound Laboratory Procedure Note Devin Billingsley MD - 04/19/2014 Amended Report Procedure: Transthoracic Echocardiogram Patient: ASHLEY FALLS MIKAELA GARCIA(Age): 1970(44) Med Rec#: [id number] Sex: M Site Loc: [facility] [place] Ht / Wt: 185(cm)/99(kg) Pt. Loc: Echo Lab BSA: 2.26 Study Date: 04/19/2014 Pt. Type: Outpatient Tape: Referring: Weston Ross ([id number]) Rn Family: Nahomi Godinez Diagnosis:CPT Code(s): Color Doppler (07343), Echo Full (11630), Spectral Doppler (56621), Indication(s): Aortic prosthesis, F/U Rhythm: HR BP 136/71 SUMMARY: 1. The left ventricle is moderately dilated. Left ventricular wall thickness is normal. There are no left ventricular segmental wall motion abnormalities. There is normal global left ventricular systolic function. There is normal global left ventricular systolic function. Ejection fraction is estimated to be 60% and unchanged by direct comparison to the prior study of 08/29/12. Left sided filling pressure could not be assessed by Doppler. 2. Right ventricular chamber size, wall thickness, and systolic function are within normal limits. 3. The mechanical prosthetic aortic valve prosthesis is functioning normally with expected regurgitant jet pattern. The peak instantaneous trans-valvular gradient across the aortic valve is 30 mmHg. The mean trans-valvular gradient across the aortic valve is 15 mmHg. These gradients are unchanged compared to those on the prior report from 08/29/12. 4. There is mild (1+/4+) mitral regurgitation present. 5. See remainder of report for additional findings. FINDINGS: Left Ventricle The left ventricle is moderately dilated. Left ventricular wall thickness is normal. There is normal global left ventricular systolic function. Ejection fraction is estimated to be 60%. There are no left ventricular segmental wall motion abnormalities. Left sided filling pressure could not be assessed by Doppler. Left Atrium The left atrium is normal in size.(31 ml/m2) Right Ventricle Right ventricular chamber size, wall thickness, and systolic function are within normal limits. Pulmonary artery hypertension could not be assessed due to inadequate tricuspid regurgitation jet. Right Atrium The right atrium is mildly dilated. Aortic Valve The peak instantaneous trans-valvular gradient across the aortic valve is 30 mmHg. The mean trans-valvular gradient across the aortic valve is 15 mmHg. The size of the prosthetic aortic valve is 27mm. The prosthetic aortic valve was implanted on 06/08/1999. A [employer] Jud[employer] mechanical aortic valve prosthesis is present. The mechanical prosthetic aortic valve prosthesis is functioning normally with expected regurgitant jet pattern. There is a trace amount of prosthetic aortic valve regurgitation present. Mitral Valve The mitral valve appears normal in structure and function. Redundant mitral valve chordae are present. There is mild (1+/4+) mitral regurgitation present. Tricuspid Valve The tricuspid valve appears normal in structure and function. There is trace tricuspid regurgitation present. Pulmonic Valve The pulmonic valve appears normal in structure and function. There is trace pulmonic regurgitation present. Pericardium The pericardium appears normal and there is no evidence of a pericardial effusion. Aorta There is mild dilatation of the aortic root. The ascending aorta is normal in size. Pulmonary Artery The main pulmonary artery appears normal. Venous The inferior vena cava appears normal. There is a greater than 50% respiratory change in the inferior vena cava dimension. Misc Two-dimensional echo, spectral Doppler and color Doppler performed. Wall Motion: Segment Name Rest Base-Anteroseptal Normal Base-Anterior Normal Base-Anterolateral Normal Base-Posterolateral Normal Base-Inferior Normal Base-Inferoseptal Normal Mid-Anteroseptal Normal Mid-Anterior Normal Mid-Anterolateral Normal Mid-Posterolateral Normal Mid-Inferior Normal Mid-Inferoseptal Normal [place]-Septal Normal [place]-Anterior Normal [place]-Lateral Normal [place]-Inferior Normal [place]-Tip Normal Chambers Value Units (Range) EF Bi-p Simp 54 % (55 to 80) IVSd 2D 1 cm LVIDd 2D 6.1 cm PWd 2D 1 cm LVIDs 2D 4.2 cm LVFS 2D 31 % LA area 23.4 cm2 (<21) RA area 22 cm2 (<18) Ao root 3.8 cm (2.1 to 3.6) Asc Ao 3 cm (2 to 3.5) Aortic Valve Value Units (Range) AV grad P 30 mmHg AV grad M 15 mmHg DOI 0.27 AV pk kindra 2.7 m/sec (1 to 1.7) LVOT pk kindra 0.73 m/sec (0.7 to 1.1) Mitral Valve Value Units (Range) E peak 0.99 m/sec E/A ratio 4.1 ratio MVDT 192 msec E1 0.11 m/sec E/E1 9 ratio Tricuspid/Pulmonic Valves Value Units (Range) RAP 3 mmHg This report has been electronically signed by: Devin Billingsley MD 04/19/2014 09:51:34 Images reviewed and interpretation verified [facility] Cardiac Ultrasound Laboratory Weston Ross MD ECHO ORDERABLES documented in this encounter Visit Diagnoses Diagnosis Heart valve replaced by other means Heart valve replaced by other means documented in this encounter Care Teams Building Construction Professor Relationship Specialty Start Date End Date Zan Granados MD PCP - General 01/13/10 03/24/15 documented as of this encounter
--- OUTSIDE RECORDS SUMMARY | 2023-09-26 19:25 | XMS_ITS | Encounter Summary ---
Author Organization [facility] Address [facility] [address] Care Team Providers Care Sap Bpc Architect Name Role Phone Tamy Cagle APRN Primary Care Provider [phone] Encounter Details Date Type Department Care Team (Late st Contact Info) Description 10/04/2017 1:40 PM EDT Office Visit Cardiology at [address] [address] Mark Calabrese MD [facility] [place] [address] Bicuspid aortic valve; S/P ascending aortic replacement Social History Tobacco [...] Mass Index 30.78 10/04/2017 1:35 PM EDT documented in this encounter Progress Notes * Mark Calabrese MD - 10/04/2017 1:40 PM EDT HPI: Neville Bishop is a 47 y.o. year old male s/p mechanical AVR replacement and ascending aorta replacement for bicuspid aortic valve. He is doing well, no complaints. No chest pain, syncope, shortness of breath, or lower extremity edema. No problems. Taking his coumadin as prescribed. Today's echocardiogram demonstrated MG of 14mmhg. Aortic root at 3.8cm. No chest pain, no passing out. 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 Good about taking his coumadin. PMHX Patient Active Problem List Diagnosis Code ??? Bicuspid aortic valve Q23.1 ??? S/P ascending aortic replacement Z95.828 MEDS: Current Outpatient Prescriptions on File Prior to Visit Medication Sig Dispense Refill ??? metoprolol succinate (TOPROL-XL) 100 mg XL tablet Take 100 mg by mouth daily. ??? amoxicillin (AMOXIL) 500 mg capsule Take 500 mg by mouth as needed. Reported on 05/14/2016 ??? warfarin (COUMADIN) 5 mg tablet 5.0 mg , PO, QD TAKE DIRECTED No current facility-administered medications on file prior to visit. reviewed SOCHX Social History Social History ??? Marital status: Spouse name: N/A ??? Number of children: N/A ??? Years of education: N/A Social History Main Topics ??? Smoking status: Never Smoker ??? Smokeless tobacco: Never Used ??? Alcohol use Not on file ??? Drug use: Not on file ??? Sexual activity: Not on file Other Topics Concern ??? Not on file Social History Narrative FAMHX No family history on file. ROS Negative for blood in stool or urine. No fevers or chills. No recent syncope. Otherwise all other systems were reviewed and found to be negative. Physical Examination Most Recent Vitals: 10/04/17 1335 BP: 123/56 Pulse: 60 SpO2: 97% General: no acute distress Behavioral: Alert and oriented to person place and time Heent: Cranial nerves 2-12 grossly intact, JVP not elevated, no carotid bruits CV: IRR normal s1 and mechanical s2 with 2/6 yan noted Lungs: CTA bilaterally Abd: soft, nt, bs positive, no pulsatile masses Extrem: no lower extremity edema Pulses: radial Pulses = bilaterally Skin: warm, dry without rashes Neuro: muscle strength grossly = bilaterally EKG: Assessement and Plan: 47 year old male s/p AVR and ascending aorta replacement. Currently doing well. 1. S/p mechanical AVR -- continue coumadin, repeat echo 1 year. Aortic root borderline at 3.8cm. Nochange since 2014 echo. 2. F/u 1 year documented in this encounter Plan of Treatment Not on file documented as of this encounter Procedures Procedure Name Priority Date/Time Associated Diagnosis Comments EKG 12-LEAD Routine 10/04/2017 1:56 PM EDT Bicuspid aortic valve S/P ascending aortic replacement documented in this encounter Results * EKG 12 Lead (10/04/2017 1:56 PM EDT) Ventricular rate 54 BPM MUSE SYSTEM Atrial Rate 54 BPM MUSE SYSTEM P-R Interval 174 ms MUSE SYSTEM QRS Duration 124 ms MUSE SYSTEM Q-T Interval 436 ms MUSE SYSTEM QTC Calculated (Bezet) 413 ms MUSE SYSTEM Calculated P [place] 53 degrees MUSE SYSTEM Calculated R [place] 72 degrees MUSE SYSTEM Calculated T [place] 70 degrees MUSE SYSTEM INTERPRETATION Sinus bradycardia Incomplete right bundle branch block Borderline ECG When compared with ECG of 14-MAY-2016 15:20, Premature ventricular complexes are no longer Present Confirmed by MD Bernardo, Kiel Franklin ([id number]) on 10/04/2017 2:46:08 PM MUSE SYSTEM 10/04/2017 1:56 PM EDT 10/04/2017 2:46 PM EDT Mark Calabrese MD ECG ORDERABLES MUSE SYSTEM documented in this encounter Visit Diagnoses Diagnosis Bicuspid aortic valve Congenital insufficiency of aortic valve S/P ascending aortic replacement Blood vessel replaced by other means documented in this encounter Care Teams Sap Bpc Architect Relationship Specialty Start Date End Date Tamy Cagle, PHOTOGRAPHER FINISH [address] [place] [address] PCP - General Family Medicine 05/14/16 documented as of this encounter
--- OUTSIDE RECORDS SUMMARY | 2023-09-26 19:25 | XMS_ITS | Encounter Summary ---
Author Organization [facility] [place] [address] Care Team Providers Care Weaving Supervisor Name Role Phone Yesenia Juan MD Primary Care Provider [phone] Encounter Details Date Type Department Care Team (Latest Contact Info) Description 08/29/2012 12:50 PM EDT - 08/29/2012 11:59 PM EDT Hospital Encounter Non[place] [phone] S/P AVR (aortic valve replacement) and aortoplasty Social History Tobacco Use Types Packs/Day Years [...] Procedure Name Priority Date/Time Associated Diagnosis Comments ECHOCARDIOGRAM TRANSTHORACIC Routine 08/29/2012 2:24 PM EDT S/P AVR (aortic valve replacement) and aortoplasty documented in this encounter Results * Echo Transthoracic (Complete) (08/29/2012 2:24 PM EDT) EF 65 HEARTLAB SYSTEM Anatomical Region Laterality Modality Other 08/29/2012 Narrative 08/29/2012 2:34 PM EDT Procedure: ? Transthoracic Echocardiogram Patient: ? ASHLEY Rose ?(Age): 1970(42) Med Rec#: ?[id number] ? Sex: ?M ? [place] [place] Ht / Wt: ??185(cm)/95.3(kg Pt. Loc: ? Echo Lab ? BSA: ?2.21 Study Date: ?08/29/2012 ? Pt. Type: Outpatient Tape: ? Referring: Ezequiel Maldonado ([id number]) Referring: YESENIA JUAN M Medical Insurance Clerk: Kristian Camargo MS, [facility] Interpreting Fellow: Hugo Mireles ([id number]) Diagnosis: ??S/P heart valve replacement (V42.2) CPT Code(s): ??Spectral Doppler (97405), ??Color Doppler (26556), ??Echo Full (09657), Indication(s): ??Aortic prosthesis, F/U Rhythm: HR ?BP ?119/58 ?? SUMMARY: 1. There is normal global left ventricular systolic function. ??The quantitative left ventricular ejection fraction by 3-D rendering is 66%. There are no left ventricular segmental wall motion abnormalities. 2. The mechanical prosthetic aortic valve prosthesis is functioning normally with expected regurgitant jet pattern. ??The mean trans-valvular gradient across ??the aortic valve is 16 mmHg. 3. Compared to previous study, there has been no significant change. FINDINGS: Study Quality ?Adequate Left Ventricle ?The left ventricle is moderately dilated. ?Left ventricular wall thickness is normal. ?There is normal global left ventricular systolic function. ?The quantitative left ventricular ejection fraction by 3-D rendering is 66%. ?There are no left ventricular segmental wall motion abnormalities. ?Doppler assessment is consistent with normal left sided filling pressure. Left Atrium ?The left atrium is normal in size. Right Ventricle ?Right ventricular chamber size, wall thickness, and systolic function are within normal limits. ?No pulmonary hypertension is noted. Right Atrium ?The right atrium is mildly dilated. Aortic Valve ?The peak instantaneous trans-valvular gradient across ??the aortic valve is 30 mmHg. ?The mean trans-valvular gradient across ??the aortic valve is 16 mmHg. ?The size of the prosthetic aortic valve is 27mm. ?The prosthetic aortic valve was implanted on 06/08/1999. ?A [employer] Judes mechanical aortic valve prosthesis is present. ?The mechanical aortic valve prosthesis appears well seated with normal function. ?The mechanical prosthetic aortic valve prosthesis is functioning normally with expected regurgitant jet pattern. Mitral Valve ?The mitral valve appears normal in structure and function.There is mild mitral chordal redundancy with chordal systolic motion which has previously been noted without LVOT obstruction. ?There is mild (1+/4+) mitral regurgitation present. Tricuspid Valve ?The tricuspid valve appears normal in structure and function. ?There is trace tricuspid regurgitation present. Pulmonic Valve ?The pulmonic valve appears normal in structure and function. ?There is trace pulmonic regurgitation present. Pericardium ?The pericardium appears normal and there is no evidence of a pericardial effusion. Aorta ?The aortic root is normal in size. ?There is mild dilatation of the aortic [...] ? Mid-Inferior ?Normal ? Mid-Inferoseptal ?Normal ? [place]-Septal ? Normal ? [place]-Anterior ? Normal ? [place]-Lateral ?Normal ? [place]-Inferior ? Normal ? [place]-Tip ?Normal ? Chambers ?Value ?Units (Range) ? LVEF Quant ?65 ? % (55 to 80) ? 3D LVEF ? 66 ? % ? 3D end di vol ? 195 ?ml ? 3D end sys vol ?67 ? ml ? IVSd MM ? 0.8 ?cm (0.3 to 1.1) ? LVIDd MM ?6.7 ?cm (3.7 to 5.6) ? PWd MM ?0.8 ?cm (0.6 to 1.1) ? LVIDs MM ?4.1 ?cm (2.3 to 3.9) ? LVFS MM ? 39 ? % (28 to 42) ? LV mass ? 226 ?gm ? LA area ? 18.3 ? cm2 (<21) ? RA area ? 18.3 ? cm2 (<18) ? Ao root ? 3.4 ?cm (2.1 to 3.6) ? Asc Ao ?3.1 ?cm (2 to 3.5) ? Aortic Valve ?Value ?Units (Range) ? AV grad P ? 30 ? mmHg ? AV grad M ? 16 ? mmHg ? DOI ? 0.364 ? AV pk kindra ? 2.7 ?m/sec (1 to 1.7) ? LVOT pk kindra ? 0.99 ? m/sec (0.7 to 1.1) ?? Mitral Valve ?Value ?Units (Range) ? E peak ?1 ?m/sec ? E/A ratio ? 2.6 ?ratio ? MVDT ?268 ?msec ? E1 ?0.1 ?m/sec ? E/E1 ?10.5 ? ratio ? S/D ratio ? 0.4 ?ratio ? Tricuspid/Pulmonic Valves ?Value ?Units (Range) ? TR peak kindra ? 2.3 ?m/sec ? RAP ? 3 ?mmHg ? RVSP/PASP ? 23 ? mmHg ? This report has been electronically signed by: Edward Iverson MD ? 08/29/2012 14:33:47 Images reviewed and interpretation verified [facility] Procedure Note Edward Iverson MD - 08/29/2012 Procedure: Transthoracic Echocardiogram Patient: ASHLEY GARCIA(Age): 1970(42) Med Rec#: [id number] Sex: M [place] [facility] Ht / Wt: 185(cm)/95.3(kg Pt. Loc: Echo Lab BSA: 2.21 Study Date: 08/29/2012 Pt. Type: Outpatient Tape: Referring: Ezequiel Maldonado ([id number]) Referring: YESENIA JUAN M Medical Insurance Clerk: Kristian Camargo MS, RDCS Interpreting Fellow: Hugo Mireles ([id number]) Diagnosis: S/P heart valve replacement (V42.2) CPT Code(s): Spectral Doppler (66746), Color Doppler (15544), Echo Full (07266), Indication(s): Aortic prosthesis, F/U Rhythm: HR BP 119/58 SUMMARY: 1. There is normal global left ventricular systolic function. The quantitative left ventricular ejection fraction by 3-D rendering is 66%. There are no left ventricular segmental wall motion abnormalities. 2. The mechanical prosthetic aortic valve prosthesis is functioning normally with expected regurgitant jet pattern. The mean trans-valvular gradient across the aortic valve is 16 mmHg. 3. Compared to previous study, there has been no significant change. FINDINGS: Study Quality Adequate Left Ventricle The left ventricle is moderately dilated. Left ventricular wall thickness is normal. There is normal global left ventricular systolic function. The quantitative left ventricular ejection fraction by 3-D rendering is 66%. There are no left ventricular segmental wall motion abnormalities. Doppler assessment is consistent with normal left sided filling pressure. Left Atrium The left atrium is normal in size. Right Ventricle Right ventricular chamber size, wall thickness, and systolic function are within normal limits. No pulmonary hypertension is noted. Right Atrium The right atrium is mildly dilated. Aortic Valve The peak instantaneous trans-valvular gradient across the aortic valve is 30 mmHg. The mean trans-valvular gradient across the aortic valve is 16 mmHg. The size of the prosthetic aortic valve is 27mm. The prosthetic aortic valve was implanted on 06/08/1999. A [employer] Judes mechanical aortic valve prosthesis is present. The mechanical aortic valve prosthesis appears well seated with normal function. The mechanical prosthetic aortic valve prosthesis is functioning normally with expected regurgitant jet pattern. Mitral Valve The mitral valve appears normal in structure and function.There is mild mitral chordal redundancy with chordal systolic motion which has previously been noted without LVOT obstruction. There is mild (1+/4+) mitral regurgitation present. Tricuspid Valve The tricuspid valve appears normal in structure and function. There is trace tricuspid regurgitation present. Pulmonic Valve The pulmonic valve appears normal in structure and function. There is trace pulmonic regurgitation present. Pericardium The pericardium appears normal and there is no evidence of a pericardial effusion. Aorta The aortic root is normal in size. There is mild dilatation of the aortic [...] Normal Mid-Posterolateral Normal Mid-Inferior Normal Mid-Inferoseptal Normal [place]-Septal Normal [place]-Anterior Normal [place]-Lateral Normal [place]-Inferior Normal [place]-Tip Normal Chambers Value Units (Range) LVEF Quant 65 % (55 to 80) 3D LVEF 66 % 3D end di vol 195 ml 3D end sys vol 67 ml IVSd MM 0.8 cm (0.3 to 1.1) LVIDd MM 6.7 cm (3.7 to 5.6) PWd MM 0.8 cm (0.6 to 1.1) LVIDs MM 4.1 cm (2.3 to 3.9) LVFS MM 39 % (28 to 42) LV mass 226 gm LA area 18.3 cm2 (<21) RA area 18.3 cm2 (<18) Ao root 3.4 cm (2.1 to 3.6) Asc Ao 3.1 cm (2 to 3.5) Aortic Valve Value Units (Range) AV grad P 30 mmHg AV grad M 16 mmHg DOI 0.364 AV pk kindra 2.7 m/sec (1 to 1.7) LVOT pk kindra 0.99 m/sec (0.7 to 1.1) Mitral Valve Value Units (Range) E peak 1 m/sec E/A ratio 2.6 ratio MVDT 268 msec E1 0.1 m/sec E/E1 10.5 ratio S/D ratio 0.4 ratio Tricuspid/Pulmonic Valves Value Units (Range) TR peak kindra 2.3 m/sec RAP 3 mmHg RVSP/PASP 23 mmHg This report has been electronically signed by: Edward Iverson MD 08/29/2012 14:33:47 Images reviewed and interpretation verified [facility] Ezequiel Maldonado MD ECHO ORDERABLES documented in this encounter Visit Diagnoses Diagnosis S/P AVR (aortic valve replacement) and aortoplasty Heart valve replaced by other means documented in this encounter Care Teams Weaving Supervisor Relationship Specialty Start Date End Date Yesenia Juan MD PCP - General 01/13/10 03/24/15 documented as of this encounter
--- OUTSIDE RECORDS SUMMARY | 2023-09-26 19:25 | XMS_ITS | Encounter Summary ---
Author Organization [facility] Address [facility] [place] [address] Care Team Providers Care Lumber Carrier Operator Name Role Phone Gia Shepherd APRN Primary Care Provider [phone] Encounter Details Date Type Department Care Team (Late st Contact Info) Description 03/25/2015 9:30 AM EST Office Visit Cardiology at [address] [place] [address] Mark Calabrese MD [facility] [place] [address] Bicuspid aortic valve; S/P ascending aortic replacement [...] Sign Reading Time Taken Comments Blood Pressure 140/80 03/25/2015 9:28 AM EST Pulse 54 03/25/2015 9:28 AM EST Temperature - - Respiratory Rate - - Oxygen Saturation 98% 03/25/2015 9:28 AM EST Inhaled Oxygen Concentration - - Weight 103.2 kg (227 lb 8 oz) 03/25/2015 9:28 AM EST Height 185.4 cm (6' 1) 03/25/2015 9:28 AM EST Body Mass Index 30.02 03/25/2015 9:28 AM EST documented in this encounter Progress Notes * Mark Calabrese MD - 03/25/2015 9:34 AM EST HPI: Mikaela Bishop is a 44 y.o. year old male s/p mechanical AVR replacement and ascending aorta replacement for bicuspid aortic valve. This is the first time I have seen him in clinic today. He is doing well, no complaints. No chest pain, syncope, shortness of breath, or lower extremity edema. No problems. Taking his coumadin as prescribed. 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 PMHX Patient Active Problem List Diagnosis Code ??? Bicuspid aortic valve Q23.1 ??? S/P ascending aortic replacement Z95.828 MEDS: Current Outpatient Prescriptions on File Prior to Visit Medication Sig Dispense Refill ??? metoprolol succinate (TOPROL-XL) 100 mg XL tablet Take 100 mg by mouth daily. ??? amoxicillin (AMOXIL) 500 mg capsule Take 500 mg by mouth as needed. Pre dental ??? warfarin (COUMADIN) 5 mg tablet 5.0 mg , PO, QD TAKE DIRECTED No current facility-administered medications on file prior to visit. reviewed SOCHX History Social History ??? Marital Status: Spouse Name: N/A Number of Children: N/A ??? Years of Education: N/A Social History Main Topics ??? Smoking status: Never Smoker ??? Smokeless tobacco: Never Used ??? Alcohol Use: None ??? Drug Use: None ??? Sexual Activity: None Other Topics Concern ??? None Social History Narrative FAMHX No family history on file. ROS Negative for blood in stool or urine. No fevers or chills. No recent syncope. Otherwise all other systems were reviewed and found to be negative. Physical Examination Filed Vitals: 03/25/15 0928 BP: 140/80 Pulse: 54 General: no acute distress Behavioral: Alert and oriented to person place and time Heent: Cranial nerves 2-12 grossly intact, JVP not elevated, no carotid bruits CV: RRR normal s1 and mechanical s2 with 2/6 yan noted Lungs: CTA bilaterally Abd: soft, nt, bs positive, no pulsatile masses Extrem: no lower extremity edema Pulses: radial Pulses = bilaterally Skin: warm, dry without rashes Neuro: muscle strength grossly = bilaterally Assessement and Plan: 44 year old male s/p AVR and ascending aorta replacement. Currently doing well. 1. S/p mechanical AVR -- continue coumadin, repeat echo next year 2. F/u 1 year, call with problems. documented in this encounter Plan of Treatment Not on file documented as of this encounter Results * ECHO COMPLETE (05/14/2016 1:38 PM EDT) EF 66 HEARTLAB SYSTEM Anatomical Region Laterality Modality Other 05/14/2016 Narrative 05/14/2016 1:50 PM EDT Procedure: ?Transthoracic Echocardiogram Patient: ?LIBERTY MIKAELA L ? (Age): 1970(46y) Med Rec#: ? [id number] ?Sex: ?M ? Site Loc: ? [facility] [place] ?Ht / Wt: ??185(cm)/103(kg) Pt. Loc: ?Echo Lab ?BSA: ?2.27 Study Date: ?? 05/14/2016 ?Pt. Type: Outpatient Tape: ? Referring: Mark Calabrese ([id number]) Reading: Marco Gregory ([id number]) Donor Services Team Leader: Soco Menon Diagnosis: *ICD-10-PCS Congenital insufficiency of aortic valve (Q23.1) CPT Codes: *Echo Full (47609) *Spectral Doppler (91228) *Color Doppler (91280) BP: ? 135/72 SUMMARY: 1. There is [...] ? Mid-Inferior ?Normal ? Mid-Inferoseptal ?Normal ? Malcolm-Septal ? Normal ? Malcolm-Anterior ? Normal ? Malcolm-Lateral ?Normal ? Malcolm-Inferior ? Normal ? Malcolm-Tip ?Normal ? This report has been electronically signed by: Marco Gregory M.D. ? 05/14/2016 13:50:37 Images reviewed and interpretation verified [facility] Procedure Note Marco Gregory MD - 05/14/2016 Procedure: Transthoracic Echocardiogram Patient: LIBERTY MIKAELA GARICA(Age): 1970(46y) Med Rec#: [id number] Sex: M Site Loc: [facility] [place] Ht / Wt: 185(cm)/103(kg) Pt. Loc: Echo Lab BSA: 2.27 Study Date: 05/14/2016 Pt. Type: Outpatient Tape: Referring: Mark Calabrese ([id number]) Reading: Marco Gregory ([id number]) Donor Services Team Leader: Soco Menon Diagnosis: *ICD-10-PCS Congenital insufficiency of aortic valve (Q23.1) CPT Codes: *Echo Full (80845) *Spectral Doppler (98168) *Color Doppler (45851) BP: 135/72 SUMMARY: 1. There is normal [...] Normal Mid-Posterolateral Normal Mid-Inferior Normal Mid-Inferoseptal Normal Malcolm-Septal Normal Malcolm-Anterior Normal Malcolm-Lateral Normal Malcolm-Inferior Normal Malcolm-Tip Normal This report has been electronically signed by: Marco Gregory M.D. 05/14/2016 13:50:37 Images reviewed and interpretation verified [facility] Mark Calabrese MD ECHO ORDERABLES documented in this encounter Visit Diagnoses Diagnosis Bicuspid aortic valve Congenital insufficiency of aortic valve S/P ascending aortic replacement Blood vessel replaced by other means Bicuspid aortic valve Congenital insufficiency of aortic valve documented in this encounter Care Teams Lumber Carrier Operator Relationship Specialty Start Date End Date Gia Shepherd APRN [phone] [place] [address] PCP - General Family Medicine 03/25/15 04/18/16 documented as of this encounter
--- OUTSIDE RECORDS SUMMARY | 2023-09-26 19:25 | XMS_ITS | Encounter Summary ---
Author Organization [facility] Address [facility] [place] [address] Care Team Providers Care Veneer Drier Feeder Name Role Phone Tamy Cagle APRN Primary Care Provider [phone] Encounter Details Date Type Department Care Team (Late st Contact Info) Description 05/21/2016 Telephone Cardiology at [address] [place] [phone] Char Gilliam, RN Social History Tobacco Use Types Packs/Day Years Used Date Smoking Tobacco: Never Smokeless Tobacco: Never Alcohol Use Standard Drinks/Week Comments Not Asked 0 (1 standard drink = 0.6 oz pur e alcohol) Sex and Gender Information Value Date Recorded Sex Assigned at Not on file Gender Identity Not on file Sexual Orientation Not on file documented as of this encounter Miscellaneous Notes * Telephone Encounter - Char Gilliam RN - 05/21/2016 1:10 PM EDT Returning call from [facility]. documented in this encounter Plan of Treatment Not on file documented as of this encounter Visit Diagnoses Not on filedocumented in this encounter Care Teams Veneer Drier Feeder Relationship Specialty Start Date End Date Tamy Cagle APRN [address] [place] [address] PCP - General Family Medicine 05/14/16 documented as of this encounter
--- OUTSIDE RECORDS SUMMARY | 2023-09-26 19:25 | XMS_ITS | Encounter Summary ---
Author Organization [facility] [place] [address] Care Team Providers Care Business Technology Teacher Name Role Phone Zan Granados MD Primary Care Provider [phone] Encounter Details Date Type Department Care Team (Latest Contact Info) Description 04/19/2014 8:00 AM EST - 04/19/2014 11:59 PM EST Hospital Encounter Non-[place] [phone] Heart valve replaced by other means Social [...] Date/Time Associated Diagnosis Comments ECHOCARDIOGRAM TRANSTHORACIC Routine 04/19/2014 9:06 AM EST Heart valve replaced by other means documented in this encounter Results * Echocardiogram Transthoracic(Leb) (04/19/2014 9:06 AM EST) EF 54 HEARTLAB SYSTEM Anatomical Region Laterality Modality Other 04/19/2014 Narrative 04/19/2014 9:23 AM EST Amended Report Procedure: ? Transthoracic Echocardiogram Patient: ? ASHLEY Rose ?(Age): 1970(44) Med Rec#: ?[id number] ? Sex: ?M ? Site Loc: ?[facility] [place] ? Ht / Wt: ??185(cm)/99(kg) Pt. Loc: ? Echo Lab ? BSA: ?2.26 Study Date: ?04/19/2014 ? Pt. Type: Outpatient Tape: ? Referring: Weston Ross ([id number]) Electrical Sign Servicer: Nahomi Godinez Diagnosis:CPT Code(s): ??Color Doppler (36376), ??Echo Full (00657), Spectral Doppler (79858), Indication(s): ??Aortic prosthesis, F/U Rhythm: HR ?BP [...] ? Mid-Inferior ?Normal ? Mid-Inferoseptal ?Normal ? [place]-Septal ? Normal ? [place]-Anterior ? Normal ? [place]-Lateral ?Normal ? [place]-Inferior ? Normal ? [place]-Tip ?Normal ? Chambers ?Value ?Units (Range) ? [...] 04/19/2014 09:51:34 Images reviewed and interpretation verified [facility] Procedure Note Devin Billingsley MD - 04/19/2014 Amended Report Procedure: Transthoracic Echocardiogram Patient: MARQUEZ MIKAELA Rose DOB(Age): 1970(44) Med Rec#: [id number] Sex: M Site Loc: [facility] [place] Ht / Wt: 185(cm)/99(kg) Pt. Loc: Echo Lab BSA: 2.26 Study Date: 04/19/2014 Pt. Type: Outpatient Tape: Referring: Weston Ross ([id number]) Electrical Sign Servicer: Nahomi Godinez Diagnosis:CPT Code(s): Color Doppler (68619), Echo Full (87095), Spectral Doppler (42036), Indication(s): Aortic prosthesis, F/U Rhythm: HR BP [...] change in the inferior vena cava dimension. [facility] Two[place]dimensional echo, spectral Doppler and color Doppler performed. Wall Motion: Segment Name Rest Base-Anteroseptal Normal Base-Anterior Normal Base-Anterolateral Normal Base-Posterolateral Normal Base-Inferior Normal Base-Inferoseptal Normal Mid-Anteroseptal Normal Mid-Anterior Normal Mid-Anterolateral Normal Mid-Posterolateral Normal Mid-Inferior Normal Mid-Inferoseptal Normal [place]-Septal Normal [place]-Anterior Normal [place]-Lateral Normal [place]-Inferior Normal [place]-Tip Normal Chambers Value Units (Range) EF Bi-p [...] 04/19/2014 09:51:34 Images reviewed and interpretation verified [facility] Weston Ross MD ECHO ORDERABLES documented in this encounter Visit Diagnoses Diagnosis Heart valve replaced by other means documented in this encounter Care Teams Business Technology Teacher Relationship Specialty Start Date End Date Zan Granados MD PCP - General 01/13/10 03/24/15 documented as of this encounter
--- OUTSIDE RECORDS SUMMARY | 2023-09-26 19:25 | XMS_ITS | Encounter Summary ---
Author Organization [facility] Address [facility] [place] [address] Care Team Providers Care Director Retirement Name Role Phone GissellerhondaTamy hameed APRN Primary Care Provider Reason for Referral * Diagnostic Test (Routine) - Specialty Diagnoses / Procedures Referred By Contac t Referred To Contact Cardiology Diagnoses Bicuspid aortic valve Procedures Echocardiogram Transthoracic(Leb) Mark Calabrese MD [facility] [place] [address] [facility] [place] [address] Referral ID Status Reason Start Date Expiration Date Visits Requested Visits Authorized [id number] Specialty Service Requested 05/14/2016 05/14/2017 1 1 Reason for Visit * Diagnostic Test (Routine) - Specialty Diagnoses / Procedures Referred By Contac t Referred To Contact Cardiology Diagnoses Bicuspid aortic valve Procedures Echocardiogram Transthoracic(Leb) Mark Calabrese MD [facility] [place] [address] [facility] [place] [address] Referral ID Status Reason Start Date Expiration Date Visits Requested Visits Authorized [id number] Specialty Service Requested 05/14/2016 05/14/2017 1 1 Encounter Details Date Type Department Care Team (Latest Contact Info) Description 10/04/2017 11:01 AM EDT - 10/04/2017 11:59 PM EDT Hospital Encounter Non[place] [address] Mark Calabrese MD [facility] [place] [address] Bicuspid aortic valve Discharge Disposition: Home Social [...] Date/Time Associated Diagnosis Comments ECHO COMPLETE Routine 10/04/2017 11:52 AM EDT Bicuspid aortic valve documented in this encounter Results * ECHO COMPLETE (10/04/2017 11:52 AM EDT) EF 62 HEARTLAB SYSTEM Anatomical Region Laterality Modality Other 10/04/2017 Narrative 10/04/2017 12:21 PM EDT Procedure: ?Transthoracic Echocardiogram Patient: ?ASHLEY Rose ? (Age): 1970(47y) Med Rec#: ? [id number] ?Sex: ?M ? Site Loc: ? [facility] ?Ht / Wt: ??182.88(cm)/102. Pt. Loc: ?Echo Lab ?BSA: ?2.24 Study Date: ?? 10/04/2017 ?Pt. Type: Outpatient Tape: ? 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 Sinus BP: ? 125/85 SUMMARY: 1. The left ventricle is mildly dilated by 2D measurement, and within normal range by LV volume index. Left ventricular wall thickness is normal. There is normal global left ventricular systolic function. The quantitative left ventricular ejection fraction by biplane Chan's method is 62%. Post-cardiotomy septal wall motion is present. 2. The right ventricle is mildly dilated. Right ventricular global systolic function is normal. Pulmonary artery hypertension could not be assessed due to inadequate tricuspid regurgitation jet. 3. The left atrium is normal in size. The right atrium is mildly dilated. 4. A St. Judes mechanical aortic valve prosthesis is present. The mechanical prosthetic aortic valve prosthesis is functioning normally with expected regurgitant jet pattern. The mean gradient is 14 mmHg. 5. There is mild (1+/4+) mitral regurgitation present. 6. There is a graft in the ascending aorta. There is mild dilatation of the aortic root. 7. See remainder of report for additional findings. 8. Compared to prior study dated 05/14/16, there is no significant change in the prosthetic aortic valve parameters. Aortic dimensions are larger on the current study, but were possibly underestimated on the prior. Findings ? : Study Quality: ? Adequate Left Ventricle: ? The left ventricle is mildly dilated.Within normal range by LV volume index. ?Left ventricular wall thickness is normal. ?No ventricular septal defect is visualized. ?There is normal global left ventricular systolic function. ?The quantitative left ventricular ejection fraction by biplane Chan's method is 62%. ?There are no left ventricular segmental wall motion abnormalities. ?Post-cardiotomy septal wall motion is present. ?Doppler assessment is consistent with normal left sided filling pressure. Left Atrium: ? The left atrium is normal in size.Volume Index= 31ml/m2. ?No atrial septal defect is visualized. Right Ventricle: ? The right ventricle is mildly dilated. ?Right ventricular global systolic function is normal. ?Pulmonary artery hypertension could not be assessed due to inadequate tricuspid regurgitation jet. Right Atrium: ? The right atrium is mildly dilated. Aortic Valve: ? The peak instantaneous trans-valvular gradient across the aortic valve is 27 mmHg. ?The mean trans-valvular gradient across ??the aortic valve is 14 mmHg. ?The size of the prosthetic aortic [...] ?There is mild (1+/4+) mitral regurgitation present. ?The mitral regurgitant jet is anteriorly directed. Tricuspid Valve: ? The tricuspid valve leaflets are morphologically normal. ?There is no evidence of tricuspid valve regurgitation present. Pulmonic Valve: ? The pulmonic valve appears normal. ?There is trace pulmonic regurgitation present. Pericardium: ? The pericardium appears normal and there is no evidence of a pericardial effusion. Aorta: ? There is mild dilatation of the aortic root. ?There is a graft in the ascending aorta.4.2 cm Pulmonary Artery: ? The main pulmonary artery is probably normal in size. Venous: ? There is a greater than 50% respiratory change in the inferior vena cava dimension. Misc: ? See remainder of report for additional findings. ?Two-dimensional echo, spectral Doppler and color Doppler performed. Chambers MM ?Value ?Units (Range) ? IVSd (MM) ? 1.1 ?cm (0.3 - 1.1) ? LVPWd (MM) ?1 ?cm (0.6 - 1.1) ? IVS:LVPW ratio ?1 ?ratio ? LVIDs (MM) ?3.7 ?cm (2.3 - 3.9) ? LVIDd (MM) ?5.9 ?cm (2.7 - 5.6) ? LVIDd (MM) index ?2.6 ?cm/m2 ? LVIDs (MM) index ?1.6 ?cm/m2 ? LV FS (MM) ?38 ? % (28 - 42) ? Chambers 2D ?Value ?Units (Range) ? RVIDd ??Base ? 4.3 ?cm ? IVSd (2D) ? 1.1 ?cm ? LVPWd (2D) ?1 ?cm ? IVS:LVPW ratio (2D) 1.1 ?ratio ? RWT (2D) ?0.3 ?ratio ? RWT PW (2D) ? 0.3 ?ratio ? LVIDd (2D) ?6 ?cm ? LVIDs (2D) ?4.7 ?cm ? LVIDd (2D) index ?2.7 ?cm/m2 ? LVIDs (2D) index ?2.1 ?cm/m2 ? LV FS (2D) ?22 ? % ? EF Teichholz (2D) ?? 44 ? % ? Ao root diameter (2D3.9 ?cm (2.1 - 3.6) ? Ascending Ao ?3.2 ?cm (2 - 3.5) ? Aortic arch ? 3 ?cm ? Volumes/Mass ?Value ?Units (Range) ? LA Area 4 CH ?21 ? cm2 (<21) ? RA AREA 4CH ? 23 ? cm2 ? LA ESV BP (MOD) inde30.9 ? ml/m2 ? LV ESV SP 4CH (MOD) 65.4 ? ml ? LV ESV SP 2CH (MOD) 49.4 ? ml ? LV EDV BP ? 149 ?ml ? LV ESV BP ? 56.4 ? ml ? LV EDV BP index ? 66.5 ? ml/m2 ? LV ESV BP index ? 25.2 ? ml/m2 ? BP EF (MOD) ? 62 ? % ? LV mass (MM) ?248.6 ?g ? LV mass (MM) index ??111 ?g/m2 ? LV mass (2D) ?257.3 ?g ? LV mass (2D) index ??114.9 ?g/m2 ? Diastolic/Systolic Function ?Value ?Units (Range) ? MV E-wave Vmax ?0.8 ?m/sec ? MV deceleration [id number] ?msec ? MV A-wave Vmax ?0.4 ?m/sec ? MV E:A ratio ?2.1 ?ratio ? P. vein S-wave Vmax 0.5 ?m/sec ? P. vein D-wave Vmax 0.6 ?m/sec ? P. vein S:D Vmax rat0.8 ?ratio ? LV E:e' septal ratio8.3 ?ratio ? LV E:e' lateral rati5.6 ?ratio ? Aortic Valve ?Value ?Units (Range) ? AV Vmax ? 2.6 ?m/sec ? AV VTI ?52.8 ? cm ? AV peak gradient ?27 ? mmHg ? AV mean gradient ?14 ? mmHg ? LVOT Vmax ? 1.2 ?m/sec ? LVOT VTI ?26.3 ? cm ? LVOT peak gradient ??5 ?mmHg ? LVOT mean gradient ??3 ?mmHg ? DOI (VTI) ? 0.5 ?ratio ? DOI (Vmax) ?0.5 ?ratio ? Tricuspid Valve ?Value ?Units (Range) ? TAPSE ? 2.3 ?cm ? RV lateral s' Vmax ??0.1 ?m/sec ? Wall Motion: Segment Name ?Rest ? Base-Anteroseptal ?? Normal ? Base-Anterior ? Normal ? Base-Anterolateral ??Normal ? Base-Posterolateral Normal ? Base-Inferior ? Normal ? Base-Inferoseptal ?? Normal ? Mid-Anteroseptal ?Normal ? Mid-Anterior ?Normal ? Mid-Anterolateral ?? Normal ? Mid-Posterolateral ??Normal ? Mid-Inferior ?Normal ? Mid-Inferoseptal ?Normal ? [place]-Septal ? Normal ? [place]-Anterior ? Normal ? [place]-Lateral ?Normal ? [place]-Inferior ? Normal ? [place]-Tip ?Normal ? This report has been electronically signed by: Kiel Chang MD ? 10/04/2017 12:20:32 Images reviewed and interpretation verified [facility] Cardiac Ultrasound Laboratory Procedure Note Kiel Chang MD - 10/04/2017 Procedure: Transthoracic Echocardiogram Patient: [place] MIKA[place]A GARCIA(Age): 1970(47y) Med Rec#: [id number] Sex: M Site Loc: [facility] Ht / Wt: 182.88(cm)/102. Pt. Loc: Echo Lab BSA: 2.24 Study Date: 10/04/2017 Pt. 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 The left ventricle is mildly dilated by 2D measurement, and within normal range by LV volume index. Left ventricular wall thickness is normal. There is normal global left ventricular systolic function. The quantitative left ventricular ejection fraction by biplane Chan's method is 62%. Post-cardiotomy septal wall motion is present. 2. The right ventricle is mildly dilated. Right ventricular global systolic function is normal. Pulmonary artery hypertension could not be assessed due to inadequate tricuspid regurgitation jet. 3. The left atrium is normal in size. The right atrium is mildly dilated. 4. A St. Judes mechanical aortic valve prosthesis is present. The mechanical prosthetic aortic valve prosthesis is functioning normally with expected regurgitant jet pattern. The mean gradient is 14 mmHg. 5. There is mild (1+/4+) mitral regurgitation present. 6. There is a graft in the ascending aorta. There is mild dilatation of the aortic root. 7. See remainder of report for additional findings. 8. Compared to prior study dated 05/14/16, there is no significant change in the prosthetic aortic valve parameters. Aortic dimensions are larger on the current study, but were possibly underestimated on the prior. Findings : Study Quality: Adequate Left Ventricle: The left ventricle is mildly dilated.Within normal range by LV volume index. Left ventricular wall thickness is normal. No ventricular septal defect is visualized. There is normal global left ventricular systolic function. The quantitative left ventricular ejection fraction by biplane Chan's method is 62%. There are no left ventricular segmental wall motion abnormalities. Post-cardiotomy septal wall motion is present. Doppler assessment is consistent with normal left sided filling pressure. Left Atrium: The left atrium is normal in size.Volume Index= 31ml/m2. No atrial septal defect is visualized. Right Ventricle: The right ventricle is mildly dilated. Right ventricular global systolic function is normal. Pulmonary artery hypertension could not be assessed due to inadequate tricuspid regurgitation jet. Right Atrium: The right atrium is mildly dilated. Aortic Valve: The peak instantaneous trans-valvular gradient across the aortic valve is 27 mmHg. The mean trans-valvular gradient across the aortic valve is 14 mmHg. The size of the prosthetic aortic [...] There is mild (1+/4+) mitral regurgitation present. The mitral regurgitant jet is anteriorly directed. Tricuspid Valve: The tricuspid valve leaflets are morphologically normal. There is no evidence of tricuspid valve regurgitation present. Pulmonic Valve: The pulmonic valve appears normal. There is trace pulmonic regurgitation present. Pericardium: The pericardium appears normal and there is no evidence of a pericardial effusion. Aorta: There is mild dilatation of the aortic root. There is a graft in the ascending aorta.4.2 cm Pulmonary Artery: The main pulmonary artery is probably normal in size. Venous: There is a greater than 50% respiratory change in the inferior vena cava dimension. Misc: See remainder of report for additional findings. Two-dimensional echo, spectral Doppler and color Doppler performed. Chambers MM Value Units (Range) IVSd (MM) 1.1 cm (0.3 - 1.1) LVPWd (MM) 1 cm (0.6 - 1.1) IVS:LVPW ratio 1 ratio LVIDs (MM) 3.7 cm (2.3 - 3.9) LVIDd (MM) 5.9 cm (2.7 - 5.6) LVIDd (MM) index 2.6 cm/m2 LVIDs (MM) index 1.6 cm/m2 LV FS (MM) 38 % (28 - 42) Chambers 2D Value Units (Range) RVIDd Base 4.3 cm IVSd (2D) 1.1 cm LVPWd (2D) 1 cm IVS:LVPW ratio (2D) 1.1 ratio RWT (2D) 0.3 ratio RWT PW (2D) 0.3 ratio LVIDd (2D) 6 cm LVIDs (2D) 4.7 cm LVIDd (2D) index 2.7 cm/m2 LVIDs (2D) index 2.1 cm/m2 LV FS (2D) 22 % EF Teichholz (2D) 44 % Ao root diameter (2D3.9 cm (2.1 - 3.6) Ascending Ao 3.2 cm (2 - 3.5) Aortic arch 3 cm Volumes/Mass Value Units (Range) LA Area 4 CH 21 cm2 (<21) RA AREA 4CH 23 cm2 LA ESV BP (MOD) inde30.9 ml/m2 LV ESV SP 4CH (MOD) 65.4 ml LV ESV SP 2CH (MOD) 49.4 ml LV EDV BP 149 ml LV ESV BP 56.4 ml LV EDV BP index 66.5 ml/m2 LV ESV BP index 25.2 ml/m2 BP EF (MOD) 62 % LV mass (MM) 248.6 g LV mass (MM) index 111 g/m2 LV mass (2D) 257.3 g LV mass (2D) index 114.9 g/m2 Diastolic/Systolic Function Value Units (Range) MV E-wave Vmax 0.8 m/sec MV deceleration [id number] msec MV A-wave Vmax 0.4 m/sec MV E:A ratio 2.1 ratio P. vein S-wave Vmax 0.5 m/sec P. vein D-wave Vmax 0.6 m/sec P. vein S:D Vmax rat0.8 ratio LV E:e' septal ratio8.3 ratio LV E:e' lateral rati5.6 ratio Aortic Valve Value Units (Range) AV Vmax 2.6 m/sec AV VTI 52.8 cm AV peak gradient 27 mmHg AV mean gradient 14 mmHg LVOT Vmax 1.2 m/sec LVOT VTI 26.3 cm LVOT peak gradient 5 mmHg LVOT mean gradient 3 mmHg DOI (VTI) 0.5 ratio DOI (Vmax) 0.5 ratio Tricuspid Valve Value Units (Range) TAPSE 2.3 cm RV lateral s' Vmax 0.1 m/sec Wall Motion: Segment Name Rest Base-Anteroseptal Normal Base-Anterior Normal Base-Anterolateral Normal Base-Posterolateral Normal Base-Inferior Normal Base-Inferoseptal Normal Mid-Anteroseptal Normal Mid-Anterior Normal Mid-Anterolateral Normal Mid-Posterolateral Normal Mid-Inferior Normal Mid-Inferoseptal Normal [place]-Septal Normal [place]-Anterior Normal [place]-Lateral Normal [place]-Inferior Normal [place]-Tip Normal This report has been electronically signed by: Kiel Chang MD 10/04/2017 12:20:32 Images reviewed and interpretation verified [facility] Cardiac Ultrasound Laboratory Mark Calabrese MD ECHO ORDERABLES documented in this encounter Visit Diagnoses Diagnosis Bicuspid aortic valve Congenital insufficiency of aortic valve documented in this encounter Care Teams Director Retirement Relationship Specialty Start Date End Date Tamy Cagle APRN [address] [place] [address] PCP - General Family Medicine 05/14/16 documented as of this encounter
--- OUTSIDE RECORDS SUMMARY | 2023-09-26 19:25 | XMS_ITS | Encounter Summary ---
Author Organization [facility] Address [facility] [place] [address] Care Team Providers Care Air Brake Rigger Name Role Phone Zan Granados MD Primary Care Provider [phone] Reason for Visit * Reason Comments Cardiac Valve Problem Encounter Details Date Type Department Care Team (Late st Contact Info) Description 08/29/2012 2:10 PM EDT Follow-Up Cardiology at [address] [phone] Ezequiel Maldonado MD [facility] [place] [address] S/P ascending aortic replacement (Primary Dx); Bicuspid aortic valve Discharge Disposition: Home Social [...] Sign Reading Time Taken Comments Blood Pressure 110/60 08/29/2012 2:10 PM EDT Lt arm sitting Pulse 60 08/29/2012 2:10 PM EDT Regul ar Temperature - - Respiratory Rate - - Oxygen Saturation 97% 08/29/2012 2:10 PM EDT Room air @ rest Inhaled Oxygen Concentration - - Weight 98.9 kg (218 lb) 08/29/2012 2:10 PM EDT D ressed Height 185.4 cm (6' 1) 08/29/2012 2:10 PM EDT Body Mass Index 28.76 08/29/2012 2:10 PM EDT documented in this encounter Patient Instructions * Patient Instructions* Ezequiel Maldonado - 08/29/2012 2:47 PM EDT Continue current medications, continue exercise, remember antibiotics RTC in 1 year documented in this encounter Progress Notes * Ezequiel Maldonado - 08/29/2012 2:49 PM EDT Cardiology Clinic Interval Visit Neivlle Bishop is a 42 y.o. male Patient Active Problem List Diagnoses ??? S/P ascending aortic replacement 28 mm [...] pressure is normal; stable ascending aortic size. Interval History Interval History: Patient returns for followup of his status post aortic valve replacement with a St. Arthur prosthesis, as well as a second surgery for ascending aortic aneurysm for which he received a Hemashield graft. Patient's past history included, prior to his surgery, bicuspid valve. He underwent an echocardiogram today, which is reviewed. See results below. This shows stable graft, as well as prosthesis, which is normally functioning and stable left ventricular function. The patient fells well. 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 He denies any palpitations, syncope, near syncopal, fevers, chills, or night sweats. He continues to use antibiotics prior to dental work. He denies orthopnea, PND, or pedal edema. He can do all the activities that he wants without limitations. He has had no bleeding on his current Coumadin dose. There have been no intermittent TIAs or strokes. There have been no new medical problems to be addressed by his primary care physician and he has not had any intercurrent emergency room or hospitalizations. Meds Current outpatient prescriptions:metoprolol succinate (TOPROL-XL) 100 mg XL tablet, Take 100 mg by mouth daily., Disp: , Rfl: ; amoxicillin (AMOXIL) 500 mg capsule, Take 500 mg by mouth as needed. Pre dental , Disp: , Rfl: ; warfarin (COUMADIN) 5 mg tablet, 5.0 mg , PO, QD TAKE DIRECTED, Disp: ,Rfl: ROS 10 system review of systems completed, see interval history/HPI. No additional complaints except:has taken up payam, discussed importance of bleeding risk, states no contact PE BP 110/60 Pulse 60 Ht 185.4 cm (6' 1) Wt 98.884 kg (218 lb) BMI 28.76 kg/m2 SpO2 97% General: He is a [...] hepatosplenomegaly. Extremities: Without edema. Pulses are intact LABS/Imaging Echo personally reviewed: SUMMARY: 1. There is normal global left [...] study, there has been no significant change. ASSESSMENT and PLAN Assessment: 1. Status post St. Arthur aortic valve prosthesis: Prosthesis is functioning normally. The patient is [employer] Functional Class I. He uses antibiotic prophylaxis regularly. He is on Coumadin without symptoms. Continue current management. 2. Status post ascending aortic graft: Stable on echo today. He is doing well. Blood pressure is controlled. Plan: Continue current medical management, return office visit in one year. documented in this encounter Plan of Treatment Not on file documented as of this encounter Visit Diagnoses Diagnosis S/P ascending aortic replacement- Primary Blood vessel replaced by other means Bicuspid aortic valve Congenital insufficiency of aortic valve documented in this encounter Care Teams Air Brake Rigger Relationship Specialty Start Date End Date Zan Granados MD PCP - General 01/13/10 03/24/15 documented as of this encounter
--- OUTSIDE RECORDS SUMMARY | 2023-09-26 19:25 | XMS_ITS | Encounter Summary ---
Author Organization [facility] Address [facility] [place] [address] Care Team Providers Care Manager Supply Chain Planning Name Role Phone Tamy Cagle APRN Primary Care Provider [phone] Reason for Visit * Reason Onset Date Comments Results 05/21/2016 Encounter Details Date Type Department Care Team (Late st Contact Info) Description 05/21/2016 Telephone Cardiology at [address] [phone] Heena Serrato RN Results Social History Tobacco Use Types Packs/Day Years [...] encounter Miscellaneous Notes * Telephone Encounter - Heena Serrato RN - 05/21/2016 1:15 PM EDT Called pt to inform him of Holter monitor results per Dr. Calabrese and plan for pt to f/u with Electrophysiology. Pt verbalized understanding and agreed with plan of care. He will await call from EP scheduling. * Telephone Encounter - Heena Serrato RN - 05/21/2016 1:15 PM EDT ----- Message from Mark Calabrese MD sent at 05/21/2016 10:06 AM EDT ----- Please let him know he had a 12% pvc burden, we will watch this for now, and in the meantime i willspeak with the heart electritions. He needs a sooner follow up -- set up for four months. documented in this encounter Plan of Treatment Not on file documented as of this encounter Visit Diagnoses Not on filedocumented in this encounter Care Teams Manager Supply Chain Planning Relationship Specialty Start Date End Date Tamy Cagle, RN PSYCHIATRIC [address] [place] [address] PCP - General Family Medicine 05/14/16 documented as of this encounter
--- OUTSIDE RECORDS SUMMARY | 2023-09-26 19:25 | XMS_ITS | Encounter Summary ---
Author Organization [facility] Address [facility] [place] [address] Care Team Providers Care Software Test Manager Name Role Phone Tamy Cagle APRN Primary Care Provider [phone] Reason for Referral * Diagnostic Test (Routine) - Specialty Diagnoses / Procedures Referred By Contac t Referred To Contact Cardiology Diagnoses Bicuspid aortic valve Procedures Echocardiogram Transthoracic(Leb) Mark Calabrese MD [facility] [place] [address] [facility] [place] [address] Referral ID Status Reason Start Date Expiration Date Visits Requested Visits Authorized [id number] Specialty Service Requested 05/14/2016 05/14/2017 1 1 Encounter Details Date Type Department Care Team (Late st Contact Info) Description 05/14/2016 3:00 PM EDT Office Visit Cardiology at [address] [phone] Mark Calabrese MD [facility] [place] [place] [address] Bicuspid aortic valve Social History Tobacco Use Types Packs/Day Years [...] Sign Reading Time Taken Comments Blood Pressure 118/75 05/14/2016 2:47 PM EDT Pulse 71 05/14/2016 2:47 PM EDT Temperature - - Respiratory Rate - - Oxygen Saturation 94% 05/14/2016 2:47 PM EDT Inhaled Oxygen Concentration - - Weight 104.8 kg (231 lb) 05/14/2016 2:47 PM EDT Height 185.4 cm (6' 1) 05/14/2016 2:47 PM EDT Body Mass Index 30.48 05/14/2016 2:47 PM EDT documented in this encounter Progress Notes * Mark Calabrese MD - 05/14/2016 3:00 PM EDT HPI: Mikaela Bishop is a 46 y.o. year old male s/p mechanical AVR replacement and ascending aorta replacement for bicuspid aortic valve. He is doing well, no complaints. No chest pain, syncope, shortness of breath, or lower extremity edema. No problems. Taking his coumadin as prescribed. 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 He has no problems with bleeding. He denies syncope of chest pain. PMHX Patient Active Problem List Diagnosis Code ??? Bicuspid aortic valve Q23.1 ??? S/P ascending aortic replacement Z95.828 MEDS: Current Outpatient Prescriptions on File Prior to Visit Medication Sig Dispense Refill ??? metoprolol succinate (TOPROL-XL) 100 mg XL tablet Take 100 mg by mouth daily. ??? warfarin (COUMADIN) 5 mg tablet 5.0 mg , PO, QD TAKE DIRECTED ??? amoxicillin (AMOXIL) 500 mg capsule Take 500 mg by mouth as needed. Reported on 05/14/2016 No current facility-administered medications on file prior to visit. reviewed SOCHX Social History Social History ??? Marital status: Spouse name: N/A ??? Number of children: N/A ??? Years of education: N/A Social History Main Topics ??? Smoking status: Never Smoker ??? Smokeless tobacco: Never Used ??? Alcohol use None ??? Drug use: None ??? Sexual activity: Not Asked Other Topics Concern ??? None Social History Narrative FAMHX No family history on file. ROS Negative for blood in stool or urine. No fevers or chills. No recent syncope. Otherwise all other systems were reviewed and found to be negative. Physical Examination Vitals: 05/14/16 1447 BP: 118/75 Pulse: 71 General: no acute distress Behavioral: Alert and [...] Neuro: muscle strength grossly = bilaterally EKG: Frequent pvc's noted. Assessement and Plan: 44 year old male s/p AVR and ascending aorta replacement. Currently doing well. 1. S/p mechanical AVR -- continue coumadin, repeat echo next year 2. 48 hour holter monitor to evaluate frequency of pvc's and rhythm 3. F/u pending holter results. documented in this encounter Plan of Treatment Not on file documented as of this encounter Procedures Procedure Name Priority Date/Time Associated Diagnosis Comments EKG 12-LEAD Routine 05/14/2016 3:20 PM EDT Bicuspid aortic valve documented in this encounter Results * ECHO COMPLETE (10/04/2017 11:52 AM EDT) EF 62 HEARTLAB SYSTEM Anatomical Region Laterality Modality Other 10/04/2017 Narrative 10/04/2017 12:21 PM EDT Procedure: ?Transthoracic Echocardiogram Patient: ?DARIO MIKAELA L ? (Age): 1970(47y) Med Rec#: ? [id number] ?Sex: ?M ? Site Loc: ? [facility] [place] ?Ht / Wt: ??182.88(cm)/102. Pt. Loc: ?Echo Lab ?BSA: ?2.24 Study Date: ?? 10/04/2017 ?Pt. Type: Outpatient Tape: ? Referring: Mark Calabrese ([id number]) Reading: Kiel Chang ??([id number]) Train Engineer: Gilberto Blankenship Diagnosis: *Congenital insufficiency of aortic [...] E-wave Vmax ?0.8 ?m/sec ? MV deceleration [id number] ?msec ? MV A-wave Vmax ?0.4 ?m/sec [...] ? Mid-Inferior ?Normal ? Mid-Inferoseptal ?Normal ? [place]-Septal ? Normal ? [place]-Anterior ? Normal ? [place]-Lateral ?Normal ? [place]-Inferior ? Normal ? [place]-Tip ?Normal ? This report has been electronically signed by: Kiel Chang MD ? 10/04/2017 12:20:32 Images reviewed and interpretation verified [facility] Cardiac Ultrasound Laboratory Procedure Note Kiel Chang MD - 10/04/2017 Procedure: Transthoracic Echocardiogram Patient: WILLIAMSTON MIKAELA GARCIA(Age): 1970(47y) Med Rec#: [id number] Sex: M Site Loc: [facility] Ht / Wt: 182.88(cm)/102. Pt. Loc: Echo Lab BSA: 2.24 Study Date: 10/04/2017 Pt. Type: Outpatient Tape: Referring: Mark Calabrese ([id number]) Reading: Kiel Chang ([id number]) Train Engineer: Gilberto Blankenship Diagnosis: *Congenital insufficiency of aortic [...] MV E-wave Vmax 0.8 m/sec MV deceleration [id number] msec MV A-wave Vmax 0.4 m/sec MV [...] Normal Mid-Posterolateral Normal Mid-Inferior Normal Mid-Inferoseptal Normal [place]-Septal Normal [place]-Anterior Normal [place]-Lateral Normal [place]-Inferior Normal [place]-Tip Normal This report has been electronically signed by: Kiel Chang MD 10/04/2017 12:20:32 Images reviewed and interpretation verified [facility] Cardiac Ultrasound Laboratory Mark Calabrese MD ECHO ORDERABLES * Holter Monitor 48hr (05/17/2016 8:25 AM EDT) Anatomical Region Laterality Modality Other Narrative 05/20/2016 10:53 AM EDT This is a holter monitor report for Mikaela Rose Dario 1970 47 hours and 59 minutes of [...] Mark Calabrese MD CARDIAC SERVICES ORD ERABLES * EKG 12 Lead (05/14/2016 3:20 PM EDT) Ventricular rate 57 BPM MUSE SYSTEM Atrial Rate 57 BPM MUSE SYSTEM P-R Interval 170 ms MUSE SYSTEM QRS Duration 124 ms MUSE SYSTEM Q-T Interval 436 ms MUSE SYSTEM QTC Calculated (Bezet) 424 ms MUSE SYSTEM Calculated P [place] 58 degrees MUSE SYSTEM Calculated R [place] 68 degrees MUSE SYSTEM Calculated T [place] 69 degrees MUSE SYSTEM INTERPRETATION Sinus bradycardia Occasional Premature ventricular complexes Non-specific intra-ventricu lar conduction delay Borderline ECG When compared with ECG of 29-SEP-2001 08:51, Premature ventricular complexes are now Present Confirmed by MD Gutierrez Douglas ([id number]) on 05/15/2016 10:36:34 AM MUSE SYSTEM 05/14/2016 3:20 PM EDT 05/15/2016 10:36 AM EDT Mark Calabrese MD ECG ORDERABLES MUSE SYSTEM documented in this encounter Visit Diagnoses Diagnosis Bicuspid aortic valve Congenital insufficiency of aortic valve Bicuspid aortic valve Congenital insufficiency of aortic valve Bicuspid aortic valve Congenital insufficiency of aortic valve documented in this encounter Care Teams Software Test Manager Relationship Specialty Start Date End Date Tamy Cagle APRN [address] [place] [address] PCP - General Family Medicine 05/14/16 documented as of this encounter
--- OUTSIDE RECORDS SUMMARY | 2023-09-26 19:26 | XMS_ITS | Encounter Summary ---
Author Organization [facility] Address [facility] [place] [address] Care Team Providers Care Sec Accountant Name Role Phone Yesenia Juan MD Primary Care Provider [phone] Reason for Visit * Reason Comments Follow-up Encounter Details Date Type Department Care Team (Late st Contact Info) Description 08/11/2011 2:10 PM EDT Follow-Up Cardiology at [address] [phone] Ezequiel Maldonado MD [facility] [place] [address] S/P AVR (aortic valve replacement) and aortoplasty (Primary Dx) Discharge Disposition: Home Social History Tobacco Use [...] Sign Reading Time Taken Comments Blood Pressure 118/68 08/11/2011 2:09 PM EDT Pulse 60 08/11/2011 2:09 PM EDT Temperature - - Respiratory Rate - - Oxygen Saturation 97% 08/11/2011 2:09 PM EDT Inhaled Oxygen Concentration - - Weight 103.4 kg (228 lb) 08/11/2011 2:09 PM EDT Height 185.4 cm (6' 1) 08/11/2011 2:09 PM EDT Body Mass Index 30.08 08/11/2011 2:09 PM EDT documented in this encounter Patient Instructions * Patient Instructions* Ezequiel Maldonado - 08/11/2011 2:41 PM EDT Continue current meds Exercise caution on motorcycle RTC in 1 year Will link echo next appointment documented in this encounter Progress Notes * Ezequiel Maldonado - 08/11/2011 2:55 PM EDT Cardiology Clinic Interval Visit Mikaela Bishop is a 41 y.o. male Patient Active Problem List Diagnoses [...] normal; stable ascending aortic size. Interval History This is a patient who I follow chronically. He is status post AVR and aortic root replacement. He is doing well. He is [place] [employer] Functional Class 1. He has had dental work times four since his last office visit but uses antibiotics religiously. He has his INR checked frequently by his primary care doctor and it runs between two and two and a half. He has had no bleeding or stroke-like symptoms. He denies fever, chills, or night sweats. He has no exertional dyspnea, chest pain, back pain, orthopnea, PND, or pedal edema. He does play softball without difficulties. He has had no intercurrent hospitalizations or Emergency Room visits. He has no other systemic complaints. He did have leg cramps, which he saw his primary care physician for who did a battery of lab tests, which were unremarkable. These seemed to have resolved. Meds Current outpatient prescriptions:metoprolol succinate (TOPROL-XL) 100 [...] completed, see interval history/HPI. No additional complaints except: leg cramps; had labs with primary care in February by report no abnormalities; has resumed motorcycle riding, emphasized with patient, safe motorcycle riding habits. PE BP 118/68 Pulse 60 Ht 185.4 cm (6' 1) Wt 103.42 kg (228 lb) BMI 30.08 kg/m2 SpO2 97% General: He is a [...] no hepatosplenomegaly. Extremities: Without edema. Pulses are intact. LABS None available ASSESSMENT and PLAN Assessment and Plan: Status post [place] aortic valve replacement with subsequent ascending aortic graft. The patient is [place] [employer] Functional Class 1. He has had yearly followup echoes with normally functioning prostheses, normal ascending aorta. We are extending the followup to a two-year interval. His activity level is excellent and he has no dyspnea or chest pain symptoms. He has had no lightheadedness or dizziness. He has resumed motorcycle riding. I did caution him regarding the risks of riding related to someone who is on chronic Coumadin. He states that he does all that is humanly possible to pursue safe motorcycle riding habits. This is one of his passions and he states he will continue to do this. He currently uses beta jose alberto and has had no difficulty. He has had multiple dental work, which in advance of each episode he takes antibiotics and he has not missed any. His INR has been therapeutic and there has been no intercurrent Bleeding.He continues to use beta jose alberto. Plan: Return office visit in one year and link that appointment with echo, which will follow a previous echo, which was performed two years ago. The patient will contact me with any change in symptom status. documented in this encounter Plan of Treatment Not on file documented as of this encounter Results * Echo Transthoracic (Complete) (08/29/2012 2:24 PM EDT) EF 65 HEARTLAB SYSTEM Anatomical Region Laterality Modality Other 08/29/2012 Narrative 08/29/2012 2:34 PM EDT Procedure: ? Transthoracic Echocardiogram Patient: ? DARIO MIKAELA L ?(Age): 1970(42) Med Rec#: ?[id number] ? Sex: ?M ? Site Loc: ?[facility] ? Ht / Wt: ??185(cm)/95.3(kg Pt. Loc: ? Echo Lab ? BSA: ?2.21 Study Date: ?08/29/2012 ? Pt. Type: Outpatient Tape: ? Referring: Ezequiel Maldonado ([id number]) Referring: YESENIA JUAN M Repair Manager: Kristian Camargo MS, [facility] Interpreting Fellow: Hugo Mireles ([id number]) Diagnosis: ??S/P heart valve replacement (V42.2) CPT Code(s): ??Spectral Doppler (21106), ??Color Doppler (87806), ??Echo Full (97416), Indication(s): ??Aortic prosthesis, F/U Rhythm: HR ?BP [...] ? Mid-Inferior ?Normal ? Mid-Inferoseptal ?Normal ? [place]-Septal ? Normal ? [place]-Anterior ? Normal ? [place]-Lateral ?Normal ? [place]-Inferior ? Normal ? [place]-Tip ?Normal ? Chambers ?Value ?Units (Range) ? [...] 08/29/2012 14:33:47 Images reviewed and interpretation verified [facility] Cardiac Ultrasound Laboratory Procedure Note Edward Iverson MD - 08/29/2012 Procedure: Transthoracic Echocardiogram Patient: [place] MIKAELA Rose (Age): 1970(42) Med Rec#: [id number] Sex: M Site Loc: [facility] Ht / Wt: 185(cm)/95.3(kg Pt. Loc: Echo Lab BSA: 2.21 Study Date: 08/29/2012 Pt. Type: Outpatient Tape: Referring: Ezequiel Maldonado ([id number]) Referring: YESENIA JUAN M Repair Manager: Mary Jo, Kristian MS, RDCS Interpreting Fellow: Hugo Mireles ([id number]) Diagnosis: S/P heart valve replacement (V42.2) CPT Code(s): Spectral Doppler (17558), Color Doppler (01772), Echo Full (77647), Indication(s): Aortic prosthesis, F/U Rhythm: HR BP [...] Normal Mid-Posterolateral Normal Mid-Inferior Normal Mid-Inferoseptal Normal [place]-Septal Normal [place]-Anterior Normal [place]-Lateral Normal [place]-Inferior Normal [place]-Tip Normal Chambers Value Units (Range) LVEF Quant [...] 08/29/2012 14:33:47 Images reviewed and interpretation verified [facility] Cardiac Ultrasound Laboratory Ezequiel Maldonado MD ECHO ORDERABLES documented in this encounter Visit Diagnoses Diagnosis S/P AVR (aortic valve replacement) and aortoplasty- Primary Heart valve replaced by other means S/P AVR (aortic valve replacement) and aortoplasty Heart valve replaced by other means documented in this encounter Care Teams Sec Accountant Relationship Specialty Start Date End Date Yesenia Juan MD PCP - General 01/13/10 03/24/15 documented as of this encounter
--- OUTSIDE RECORDS SUMMARY | 2023-09-26 19:26 | XMS_ITS | Encounter Summary ---
Author Organization [facility] Address [facility] [place] [address] Care Team Providers Care Level Glass Vial Filler Name Role Phone Zan Granados MD Primary Care Provider Encounter Details Date Type Department Care Team (Late st Contact Info) Description 06/17/2010 Orders Only Cardiology at [address] [phone] Ezequiel Maldonado MD [facility] [place] [address] Aortic valve prosthesis present (Primary Dx) Social History Tobacco Use Types Packs/Day Years Used Date Smoking Tobacco: Never Assessed Sex and Gender Information Value Date Recorded Sex Assigned at Not on file Gender Identity Not on file Sexual Orientation Not on file documented as of this encounter Plan of Treatment Not on file documented as of this encounter Results * Echocardiogram Complete (06/23/2010 11:24 AM EDT) EF 65 HEARTLAB SYSTEM Anatomical Region Laterality Modality Other 06/23/2010 Narrative 06/23/2010 11:55 AM EDT Procedure: ? Transthoracic Echocardiogram ? Patient: ? DARIO Rose ? (Age): 1970(40) Med Rec#: ?[id number] ?Sex: ?M ? Site Loc: ?[facility] ?Ht / Wt: 185(cm)/102(kg) Pt. Loc: ? Echo Lab ?BSA: ?2 Study Date: ?06/23/2010 ?Pt. Type: Outpatient Tape: ?[id number] ? Referring: Ezequiel Maldonado Referring: EDI Glaciologist: Claudia Spicer Interpreting Fellow: Rob Myles Diagnosis: ??S/P heart valve replacement (V42.2) CPT Code(s): ??Color Doppler (59122), ??Echo Full (78291), ??Spectral Doppler (01845), Indication(s): ??Aortic prosthesis, F/U Rhythm: Sinus HR ?BP ?102/68 ?? SUMMARY: 1. The left ventricle is moderately dilated. ??There is normal global left ventricular systolic function. ??Ejection fraction is estimated to be 65%. ??There are no left ventricular segmental wall motion abnormalities. 2. The mechanical prosthetic aortic valve prosthesis is functioning normally with expected regurgitant jet pattern. ??The mean gradient across the aortic valve is 13 mmHg. 3. There is mild mitral regurgitation present. 4. There is no significant change compared to the prior echo. FINDINGS: Study Quality ?Adequate Left Ventricle ?The left ventricle is moderately dilated. ?Left ventricular wall thickness is normal. ?There is normal global left ventricular systolic function. ??Ejection fraction is estimated to be 65%. ?There are no left ventricular segmental wall motion abnormalities. ?Doppler assessment is consistent with normal left sided filling pressure. Left Atrium ?The left atrium is normal in size. Right Ventricle ?Right ventricular chamber size, wall thickness, and systolic function are within normal limits. ?Pulmonary artery hypertension could not be assessed due to inadequate tricuspid regurgitation jet. Right Atrium ?The right atrium is normal in size. Aortic Valve ?The peak instantaneous trans-valvular gradient across ??the aortic valve is 25 mmHg. ?The mean trans-valvular gradient across ??the aortic valve is 13 mmHg. ?The size of the prosthetic aortic [...] ? Mid-Inferior ?Normal ? Mid-Inferoseptal ?Normal ? [place]-Septal ? Normal ? [place]-Anterior ? Normal ? [place]-Lateral ?Normal ? [place]-Inferior ? Normal ? [place]-Tip ?Normal ? Chambers ?Value ?Units (Range) ? LV EF Est ? 65 ? % (55 to 80) ? IVSd 2D ? 0.9 ?cm ? LVIDd 2D ?6.3 ?cm ? PWd 2D ?0.8 ?cm ? LVIDs 2D ?4.2 ?cm ? LVFS 2D ? 33 ? % ? LA area ? 17 ? cm2 (<21) ? RA area ? 17 ? cm2 (<18) ? Ao root ? 3.7 ?cm (2.1 to 3.6) ? Asc Ao ?2.9 ?cm (2 to 3.5) ? Aortic Valve ?Value ?Units (Range) ? AV grad P ? 25 ? mmHg ? AV grad M ? 13 ? mmHg ? DOI ? 0.375 ? AV pk kindra ? 2.5 ?m/sec (1 to 1.7) ? LVOT pk kindra ? 0.93 ? m/sec (0.7 to 1.1) ?? Mitral Valve ?Value ?Units (Range) ? E peak ?1.02 ? m/sec ? E/A ratio ? 2.6 ?ratio ? MVDT ?194 ?msec ? E1 ?0.15 ? m/sec ? E/E1 ?6.8 ?ratio ? This report has been electronically signed by: Edward Iverson MD ? 06/23/2010 11:52:33 Images reviewed and interpretation verified [facility] Cardiac Ultrasound Laboratory Procedure Note 06/23/2010 Procedure: Transthoracic Echocardiogram Patient: DARIO GACRIA(Age): 1970(40) Med Rec#: [id number] Sex: M Site Loc: [facility] Ht / Wt: 185(cm)/102(kg) Pt. Loc: Echo Lab BSA: 2.29 Study Date: 06/23/2010 Pt. Type: Outpatient Tape: [id number] Referring: Ezequiel Maldonado Referring: EDI Glaciologist: Cluadia Spicer Interpreting Fellow: Rob Myles Diagnosis: S/P heart valve replacement (V42.2) CPT Code(s): Color Doppler (67530), Echo Full (92832), Spectral Doppler (41672), Indication(s): Aortic prosthesis, F/U Rhythm: Sinus HR BP 102/68 SUMMARY: 1. The left ventricle is moderately dilated. There is normal global left ventricular systolic function. Ejection fraction is estimated to be 65%. There are no left ventricular segmental wall motion abnormalities. 2. The mechanical prosthetic aortic valve prosthesis is functioning normally with expected regurgitant jet pattern. The mean gradient across the aortic valve is 13 mmHg. 3. There is mild mitral regurgitation present. 4. There is no significant change compared to the prior echo. FINDINGS: Study Quality Adequate Left Ventricle The left ventricle is moderately dilated. Left ventricular wall thickness is normal. There is normal global left ventricular systolic function. Ejection fraction is estimated to be 65%. There are no left ventricular segmental wall motion abnormalities. Doppler assessment is consistent with normal left sided filling pressure. Left Atrium The left atrium is normal in size. Right Ventricle Right ventricular chamber size, wall thickness, and systolic function are within normal limits. Pulmonary artery hypertension could not be assessed due to inadequate tricuspid regurgitation jet. Right Atrium The right atrium is normal in size. Aortic Valve The peak instantaneous trans-valvular gradient across the aortic valve is 25 mmHg. The mean trans-valvular gradient across the aortic valve is 13 mmHg. The size of the prosthetic aortic [...] Normal Mid-Posterolateral Normal Mid-Inferior Normal Mid-Inferoseptal Normal [place]-Septal Normal [place]-Anterior Normal [place]-Lateral Normal [place]-Inferior Normal [place]-Tip Normal Chambers Value Units (Range) LV EF Est 65 % (55 to 80) IVSd 2D 0.9 cm LVIDd 2D 6.3 cm PWd 2D 0.8 cm LVIDs 2D 4.2 cm LVFS 2D 33 % LA area 17 cm2 (<21) RA area 17 cm2 (<18) Ao root 3.7 cm (2.1 to 3.6) Asc Ao 2.9 cm (2 to 3.5) Aortic Valve Value Units (Range) AV grad P 25 mmHg AV grad M 13 mmHg DOI 0.375 AV pk kindra 2.5 m/sec (1 to 1.7) LVOT pk kindra 0.93 m/sec (0.7 to 1.1) Mitral Valve Value Units (Range) E peak 1.02 m/sec E/A ratio 2.6 ratio MVDT 194 msec E1 0.15 m/sec E/E1 6.8 ratio This report has been electronically signed by: Edward Iverson MD 06/23/2010 11:52:33 Images reviewed and interpretation verified [facility] Cardiac Ultrasound Laboratory Ezequiel Maldonado MD ECHO ORDERABLES documented in this encounter Visit Diagnoses Diagnosis Aortic valve prosthesis present- Primary Heart valve replaced by other means Aortic valve prosthesis present Heart valve replaced by other means documented in this encounter Care Teams Level Glass Vial Filler Relationship Specialty Start Date End Date Zan Granados MD PCP - General 01/13/10 03/24/15 documented as of this encounter
--- OUTSIDE RECORDS SUMMARY | 2023-09-26 19:26 | XMS_ITS | Encounter Summary ---
Author Organization Formerly [facility] Address [facility] [place] [address] Care Team Providers Care Timers Inspector Name Role Phone Zan Granados MD Primary Care Provider [phone] Encounter Details Date Type Department Care Team (Latest Contact Info) Description 06/23/2010 10:21 AM EDT - 06/23/2010 11:59 PM EDT Hospital Encounter Non-Invasive [place] [id number] CARDIO, ECHO SIXTY MIN APPT None Ezequiel Maldonado MD [facility] [place] [address] Aortic valve prosthesis present Discharge Disposition: Home Social History Tobacco Use Types Packs/Day Years Used Date Smoking Tobacco: Never Alcohol Use Standard Drinks/Week Comments Not Asked 0 (1 standard drink = 0.6 oz pur e alcohol) Sex and Gender Information Value Date Recorded Sex Assigned at Not on file Gender Identity Not on file Sexual Orientation Not on file documented as of this encounter Medications at Time of Discharge Medication Sig Dispensed Refills Start Date End Date amoxicillin (AMOXIL) 500 mg capsule Take 500 mg by mouth as needed. Reported on 05/14/2016 06/23/2010 warfarin (COUMADIN) 5 mg tablet 5.0 mg , PO, QD TAKE DIRECTED 06/24/2009 metoprolol succinate (TOPROL-XL) 25 mg 24 hr tabletIndications:hype rtension Take 100 mg by mouth daily. Indications: Hypertension 06/26/2010 documented as of this encounter Plan of Treatment Not on file documented as of this encounter Procedures Procedure Name Priority Date/Time Associated Diagnosis Comments ECHOCARDIOGRAM TRANSTHORACIC Routine 06/23/2010 11:24 AM EDT Aortic valve prosthesis present documented in this encounter Results * Echocardiogram Complete (06/23/2010 11:24 AM EDT) EF 65 HEARTLAB SYSTEM Anatomical Region Laterality Modality Other 06/23/2010 Narrative 06/23/2010 11:55 AM EDT Procedure: ? Transthoracic Echocardiogram ? Patient: ? ASHLEY Rose ? (Age): 1970(40) Med Rec#: ?[id number] ?Sex: ?M ? [place] [place]Ht / Wt: 185(cm)/102(kg) Pt. Loc: ? Echo Lab ?BSA: ?2.29 Study Date: ?06/23/2010 ?Pt. Type: Outpatient Tape: ?E92 ? Referring: Ezequiel Maldonado Referring: EDI Vinyl Installer: Claudia Spicer Interpreting Fellow: Rob Myles Diagnosis: ??S/P heart valve replacement (V42.2) CPT Code(s): ??Color Doppler (49671), ??Echo Full (89070), ??Spectral Doppler (43885), Indication(s): ??Aortic prosthesis, F/U Rhythm: Sinus HR [...] ? Mid-Inferior ?Normal ? Mid-Inferoseptal ?Normal ? [place]-Septal ? Normal ? [place]-Anterior ? Normal ? [place]-Lateral ?Normal ? [place]-Inferior ? Normal ? [place]-Tip ?Normal ? Chambers ?Value ?Units (Range) ? [...] Procedure Note 06/23/2010 Procedure: Transthoracic Echocardiogram Patient: HACKETT MIKAELA GARCIA(Age): 1970(40) Med Rec#: [id number] Sex: M [place] [facility] Ht / Wt: 185(cm)/102(kg) Pt. Loc: Echo Lab BSA: 2.29 Study Date: 06/23/2010 Pt. Type: Outpatient Tape: E92 Referring: Ezequiel Maldonado Referring: EDI Vinyl Installer: Claudia Spicer Interpreting Fellow: Rob Myles Diagnosis: S/P heart valve replacement (V42.2) CPT Code(s): Color Doppler (06089), Echo Full (23102), Spectral Doppler (71186), Indication(s): Aortic prosthesis, F/U Rhythm: Sinus HR [...] change in the inferior vena cava dimension. [facility] [place] echo, spectral Doppler and color Doppler performed. Wall Motion: Segment Name Rest Base-Anteroseptal Normal Base-Anterior Normal Base-Anterolateral Normal Base-Posterolateral Normal Base-Inferior Normal Base-Inferoseptal Normal Mid-Anteroseptal Normal Mid-Anterior Normal Mid-Anterolateral Normal Mid-Posterolateral Normal Mid-Inferior Normal Mid-Inferoseptal Normal [place]-Septal Normal [place]-Anterior Normal [place]-Lateral Normal [place]-Inferior Normal [place]-Tip Normal Chambers Value Units (Range) LV EF [...] encounter Visit Diagnoses Diagnosis Aortic valve prosthesis present Heart valve replaced by other means documented in this encounter Care Teams Timers Inspector Relationship Specialty Start Date End Date Zan Granados MD PCP - General 01/13/10 03/24/15 documented as of this encounter
--- OUTSIDE RECORDS SUMMARY | 2023-09-26 19:26 | XMS_ITS | Encounter Summary ---
Author Organization [facility] Address [address] [place] [address] Care Team Providers Care Remote Computer Terminal Operator Name Role Phone Zan Granados MD Primary Care Provider [phone] Encounter Details Date Type Department Care Team (Late st Contact Info) Description 04/24/2021 Lab Requisition [facility] - [facility] [address] [place] [address] Mirna Lam, DO [address] [place] [address] Encounter for screening for malignant neoplasm of colon Social History Tobacco Use Types Packs/Day Years Used Date Smoking Tobacco: Never Assessed Sex and Gender Information Value Date Recorded Sex Assigned at Not on file Gender Identity Not on file Sexual Orientation Not on file documented as of this encounter Plan of Treatment Not on file documented as of this encounter Procedures Procedure Name Priority Date/Time Associated Diagnosis Comments SURGICAL PATHOLOGY Today 04/24/2021 8:04 EST Encounter for screening for malignant neoplasm of colon documented in this encounter Results * SURGICAL PATHOLOGY (04/24/2021 8:04 EST) Note to Patient The following pathology results have been interpreted by your pathologist and may be available to you before your health provider has had the opportunity to review them. Please allow time for your provider to receive these results and explore management options, if applicable. 04/29/2021 13:59 EST [facility] Final Diagnosis A. COLON, 25CM, BIOPSY: - Sessile serrated adenoma B. COLON, 20CM, BIOPSY: - Hyperplastic polyp 04/29/2021 13:59 EST [facility] Diagnosis Comment Cut File Clerk slides of this case were reviewed at the gastrointestinal/tray holman intradepartmental consultation conference. 04/29/2021 13:59 [facility] Attestation By the signature below, the attending physician certifies that they have 1) personally conducted a gross and/or microscopic examination of the described specimen(s), and/or personally interpreted the results of laboratory testing of the described specimen(s), and 2) personally rendered or confirmed the above diagnosis. 04/29/2021 13:59 [facility] at 1359 Clinical History Screening 04/29/2021 13:59 [facility] Gross Description A. Received in formalin labelled with proper patient identification (initials N, A) and polyp @ 25 cm are five pale drake-white focally brown speckled tissues (0.9 x 0.4 x 0.3 cm to 0.3 x 0.2 x 0.2 cm). The two largest tissues are each bisected and submitted in A1-A2, and the remaining smaller tissues are entirely submitted in A3. B. Received in formalin labelled with proper patient identification (initials N, A) and polyp @ 20 cm is a pale drake focally brown speckled tissue (0.5 x 0.4 x 0.3 cm). Bisected and submitted in B1. Amari Nieves 04/26/2021 12:14 04/29/2021 13:59 [facility] Performing Lab [facility] 04/29/2021 13:59 [facility] Scanned Images 04/29/2021 13:59 [facility] Tissue ENTIRE COLON / Unknown 04/24/2021 8:04 EST 04/24/2021 17:31 EST Tissue specimen (specimen) COLON STRUCTURE / Unknown 04/24/2021 8:04 EST 04/24/2021 17:31 EST Mirna Lam DO PATHOLOGY ORDERABLES [facility] [address] [place] [address] documented in this encounter Visit Diagnoses Diagnosis Encounter for screening for malignant neoplasm of colon Special screening for malignant neoplasms, colon documented in this encounter Care Teams Remote Computer Terminal Operator Relationship Specialty Start Date End Date Zan Granados MD PCP - General 12/31/14 documented as of this encounter
--- OUTSIDE RECORDS SUMMARY | 2023-09-26 19:26 | XMS_ITS | Encounter Summary ---
Author Organization [facility] Address [facility] [place] [place] [address] Care Team Providers Care Coal Passer Name Role Phone Zan Granados MD Primary Care Provider [phone] Encounter Details Date Type Department Care Team (Late st Contact Info) Description 06/26/2010 Abstract Cardiology at [address] [address] Ezequiel Maldonado MD [facility] [place] [address] Social History Tobacco Use Types Packs/Day Years [...] on filedocumented in this encounter Care Teams Coal Passer Relationship Specialty Start Date End Date Zan Granados MD PCP - General 01/13/10 03/24/15 documented as of this encounter
--- OUTSIDE RECORDS SUMMARY | 2023-09-26 19:26 | XMS_ITS | Encounter Summary ---
Author Organization [facility] Address [facility] [place] [address] Care Team Providers Care Woods Boss Name Role Phone Zan Granados MD Primary Care Provider [phone] Encounter Details Date Type Department Care Team (Late st Contact Info) Description 06/18/2010 Orders Only Cardiology at [address] [address] Ezequiel Maldonado MD [facility] [place] [address] Social History Tobacco Use Types Packs/Day Years Used Date Smoking Tobacco: Never Assessed Sex and Gender Information Value Date Recorded Sex Assigned at Not on file Gender Identity Not on file Sexual Orientation Not on file documented as of this encounter Plan of Treatment Not on file documented as of this encounter Visit Diagnoses Not on filedocumented in this encounter Care Teams Woods Boss Relationship Specialty Start Date End Date Zan Granados MD PCP - General 01/13/10 03/24/15 documented as of this encounter
--- OUTSIDE RECORDS SUMMARY | 2023-09-26 19:26 | XMS_ITS | Encounter Summary ---
Author Organization [facility] Address [facility] [place] [address] Care Team Providers Care Document Analyst Name Role Phone Zan Granados MD Primary Care Provider [phone] Reason for Visit * Reason Comments Cardiac Valve Problem F/U Encounter Details Date Type Department Care Team (Late st Contact Info) Description 06/23/2010 1:40 PM EDT Follow-Up Cardiology at [address] [address] Ezequiel Maldonado MD [facility] [place] [address] S/p AVR (Primary Dx) Discharge Disposition: Home Social History [...] Sign Reading Time Taken Comments Blood Pressure 104/60 06/23/2010 1:58 PM EDT Lt arm sitting Pulse 60 06/23/2010 1:58 PM EDT Regul ar Temperature - - Respiratory Rate - - Oxygen Saturation - - Inhaled Oxygen Concentration - - Weight 108.9 kg (240 lb) 06/23/2010 1:58 PM EDT Height 185.4 cm (6' 1) 06/23/2010 1:58 PM EDT Body Mass Index 31.66 06/23/2010 1:58 PM EDT documented in this encounter Progress Notes * Ezequiel Maldonado - 06/24/2010 6:28 AM EDT Subjective: Patient ID: Neville Bishop is a 40 y.o. male.With the following problems: Problem List: 1. Status post [facility] aortic valve replacement on June 08, 1999, for a bicuspid aortic valve.Repeat CT surgery 2001 For ascending aortic graft a. Echocardiogram, 06/24/09: Left ventricle is moderately dilated; there is normal global left ventricular systolic function; ejection fraction is estimated to be 70%; mechanical aortic valve prosthesis, [facility], with normal function; mean trans-valvular gradient is 19 mmHg; DOI 0.378; diastolic function is normal; PA pressure is normal; stable ascending aortic size. B. Echocardiograpm, 06/23/10: Normally functioning aortic prosthesis, stable ascending aorta, normal LV function, Stable LV size. HPI Interval History: This is a patient who returns for follow up regarding his aortic valve replacement as well as aortic root replacement.Clinically, the patient has been doing well. He is NYHA Functional Clas 1. Is about to return to jogging. He has no CONTRERAS, chest pain, palpitations, syncope, near syncope, orthopnea, pnd, fever, chills, night sweats, or bleeding. His INR is therapeutic. Denies backpain.He jogged and plavyed softball last year without difficulty. Had recent dental work, robert, nadia using antibiotic prophylaxis. His echo performed today which I reviwed shows a normally functioning [facility]. Judes' aortic prosthesis and stable ascending aortic size. Medications verified in ED[facility]. Patient is verifying his toprol dose. ROS 10 system review of systems completed, see interval history/HPI. No additional complaints except Patient sgtates he had cholesterol screening at his place of employment and his cholesterol is excellent. He will try to find results and forward to us: Physical Exam BP 104/60 Pulse 60 Ht 1.854 m (6' 1) Wt 108.863 kg (240 lb) BMI 31.66 kg/m2 General: He is a well developed, well [...] hepatosplenomegaly. Extremities: Without edema. Pulses are intact. Laboratory data: I reviewed his echocardiogram as noted above. Assessment and Plan: Assessment: 1. S/P aortic valve and aortic root replacement: Stable. We had a long discussion about maintenanceof beta jose alberto. I said that the current recommendations are to continue beta jose alberto. I will rediscuss with Dr. Ramos, one of our CT surgeons the need for yearly echoes as aortic root is stable. Plan: 1. Return office visit in 1 year 2. Copy of this note to patient's primary care physician. 3. Will discuss need for repeat echoes on yearly basis with CT surgery. documented in this encounter Plan of Treatment Not on file documented as of this encounter Visit Diagnoses Diagnosis S/P AVR- Primary Heart valve replaced by other means documented in this encounter Care Teams Document Analyst Relationship Specialty Start Date End Date Zan Granados MD PCP - General 01/13/10 03/24/15 documented as of this encounter
--- OUTSIDE RECORDS SUMMARY | 2023-09-26 19:26 | XMS_ITS | Referral Summary ---
Author Organization [facility] Address [address] [place] [address] Care Team Providers Care Inclusion Special Education Teacher Name Role Phone Zan Granados MD Primary Care Provider [phone] Social History Tobacco Use Types Packs/Day Years Used Date Smoking Tobacco: Never Assessed Sex and Gender Information Value Date Recorded Sex Assigned at Not on file Gender Identity Not on file Sexual Orientation Not on file Plan of Treatment Not on file Care Teams Inclusion Special Education Teacher Relationship Specialty Start Date End Date Zan Granados MD PCP - General 12/31/14
--- OUTSIDE RECORDS SUMMARY | 2023-09-26 19:26 | XMS_ITS | Clinical Summary ---
Author Organization [facility] Address [address] [place] [address] Care Team Providers Care Supervisor Chemical Name Role Phone Zan Granados MD Primary Care Provider [phone] Social History Tobacco Use Types Packs/Day Years Used Date Smoking Tobacco: Never Assessed Sex and Gender Information Value Date Recorded Sex Assigned at Not on file Gender Identity Not on file Sexual Orientation Not on file Plan of Treatment Health Maintenance Due Date Last Done Comments Hepatitis C Screen 1970 Hepatitis B Vaccine (1 of 3 - 19+ 3-dose series) 04/13 COVID-19 Vaccine (2022-24 season) 2022 Care Teams Supervisor Chemical Relationship Specialty Start Date End Date Zan Granados MD PCP - General 12/31/14
--- OUTSIDE RECORDS SUMMARY | 2023-09-26 19:26 | XMS_ITS | Encounter Summary ---
Author Organization [facility] Address [facility] [place] [place] [address] Care Team Providers Care Recreational Programs Director Name Role Phone Tamy Cagle APRN Primary Care Provider [phone] Encounter Details Date Type Department Care Team (Late st Contact Info) Description 03/03/2007 Orders [place] [address] Zan Dao Jr., MD [facility] DR [place]ARDIOTHORAC[place] [address] Social History Tobacco Use Types Packs/Day Years Used Date Smoking Tobacco: Never Assessed Sex and Gender Information Value Date Recorded Sex Assigned at Not on file Gender Identity Not on file Sexual Orientation Not on file documented as of this encounter Plan of Treatment Not on file documented as of this encounter Procedures Procedure Name Priority Date/Time Associated Diagnosis Comments SURGICAL PATHOLOGY REPORT Routine 03/03/2007 1:22 PM EST documented in this encounter Results * Surgical Pathology Report (03/03/2007 1:22 PM EST) Surgical Pathology Report [id number] ? Location: [facility]; [address] The signing pathologist has (i) examined the relevant preparation(s) for the specimen(s) and (ii) rendered or confirmed the diagnosis(es). . ?Pathology Surgical Pathology Final Report Clinical Information Specimen Submitted: A - Sternal wires: ??chest Clinical History: (not provided) Clinical Diagnosis: Irritating sternal wires Gross Description Labeled/Fixativ e: ? Sternal wires chest, fresh in saline. Qty/Size/Weight : ?Four segments of twisted silver-colored wire, ?averaging 8.5 cm in length and 0.1 cm in diameter ?each. ??There are no attached tissues. ??The wires are ?nonreactive to a magnet. Sections/Proces sing: ??No sections are submitted. ??aje/PPS Diagnosis Four segments of wire grossly consistent with sternal wires. ?? Gross surgical pathology examination. CR-1 03/05/07 AJE 03/14/07 Verified by: ? Eduar Smith MD ?Pathologist ?(Electronic Signature) The attending pathologist whose signature appears on this report has reviewed all diagnostic slides and has edited the gross and/or microscopic portion of the report in rendering the final pathologic diagnosis. RUBY GLASER 03/03/2007 1:22 PM EST Zan Dao Jr., MD PATHOLOGY/CYTOLOG Y ORDERABLES RUBY GLASER documented in this encounter Visit Diagnoses Not on filedocumented in this encounter Care Teams Recreational Programs Director Relationship Specialty Start Date End Date Tamy Cagle, RESEARCH NEUROPSYCHOLOGIST [address] [place] [address] PCP - General Family Medicine 05/14/16 documented as of this encounter
== END 2023-09-26 19:24 | disposition home or self-care (01) ==
LOC: LBO 19:24
PROVIDERS: PCP Nurse Practitioner Family; Visit Provider Nurse Practitioner Family
DX: Z79.01 Long term (current) use of anticoagulants (principal)
CPT/HCPCS: 36415; 85610

== ENCOUNTER 2024-01-11 01:41 | Outpatient (CLI) | payer BC, SELFPAY ==
--- NOTE | 2024-01-11 14:30 | DI.US_ITS ---
APPROVED REPORT EXAM: Comprehensive 2D, Doppler, and color-flow Echocardiogram Patient Location: Out-Patient [facility] Attendant: Palmira Morse RDCS (AE) Indications: H/O aortic root repair and aortic valve replacement Other Information Study Quality: Adequate Conclusion Top normal left ventricular size. Wall thickness is normal. Ejection fraction is 55 to 60%. There are no segmental wall motion abnormalities Normal right ventricular size and function Both atria are normal in size There is an aortic valve prosthesis. Mean gradient is 8 mmHg there is trace aortic regurgitation Ascending aorta measures 2.84 cm Wall motion Left Ventricle The left ventricle is normal size. The left ventricular systolic function is normal. The left ventric ular ejection fraction is within the normal range. There is normal left ventricular wall thickness. T here is normal LV segmental wall motion. There is no ventricular septal defect visualized. LVEF is 56 %. Right Ventricle Right ventricle is grossly normal in size. Right ventricular systolic function is grossly normal. Atria The left atrium size is normal. The right atrium size is normal. The interatrial septum is intact wit h no evidence for an atrial septal defect. Aortic Valve Mean gradient is 8 mmHg Trace aortic regurgitation. Prosthetic aortic valve is present. Mitral Valve The mitral valve is normal in structure. No evidence of mitral valve stenosis. Mild mitral regurgitat ion. Tricuspid Valve The tricuspid valve is normal in structure. There is no tricuspid valve stenosis. Trace tricuspid reg urgitation. Pulmonic Valve The pulmonary valve is normal in structure. There is no pulmonic valvular stenosis. Trace pulmonic re gurgitation. Great Vessels The aortic root is normal in size. The ascending aorta is normal in size. Aortic arch is normal in ca liber. IVC is normal in size and collapses >50% with inspiration. Pericardium There is no pericardial effusion. 2D Dimensions IVSD d PLAX 0.92 cm M: 0.6-1.2 Ao Root d 2.79 cm M: 3.1 - 3.7 LVPW d PLAX 0.93 cm M: 0.6 - 1.2 Ao Asc Diam d 2.84 cm M: 2.6 - 3.4 LVID d PLAX 6.18 cm M: 4.2 - 5.8 LVDs 4.29 cm M: 2.5 - 4.0 LV EF Teichholz 57.2 % FS 30.67 % LV EDV (Teich) 192.7 mL LV ESV (Teich) 82.4 mL Auto EF LV EDV A4C 200.9 mL LV EDV A2C 174.7 mL LV EDV BP 191.8 mL LV ESV A4C 87.6 mL LV ESV A2C 76.9 mL LV ESV BP 81.0 mL LVEF(%) A4C 56.4 % LVEF(%) A2C 56.0 % LVEF(%) BP 57.8 % LV SV A4C 113.3 ml LV SV A2C 97.8 ml LV SV BP 110.8 ml LV CO A4C 5.9 L/min LV CO A2C 4.9 L/min LV CO BP 5.4 L/min HR A4C 51.65 BPM HR A2C 49.86 BPM LV EDV Index (BP) LA Volume LA Length A4C 5.5 cm LA Length A2C 4.3 cm LA Area A4C s 19.01 cm2 LA Area A2C s 13.51 cm2 LA Vol A4C A-L 56.20 mL LA Vol A2C A-L 36.34 mL LA Vol Biplane A-L 51.1 mL LA Vol/BSA A4C A-L LA Vol/BSA A2C A-L LA Vol/BSA BP A-L 22.4 mL/m2 LA Vol A4C MOD 51.8 mL LA Vol A2C MOD 33.7 mL LA Vol BP MOD 47.1 mL LV Diastology MV E' medial 0.118 (>0.07 m/s) MV E Vmax 0.70 (0.4-1.3 m/s) MV E/E' MED 5.97 (<14) MV A Vmax 0.45 (0.4-1.3 m/s) MV E' lateral 0.174 (>0.1 m/s) E/A Ratio 1.6 MV E/E' LAT 4.04 (<14) MV E' Average 0.146 m/s MV E/E'(average) 4.82 Aortic Valve AoV Vmax 2.27 m/s LVOT Vmax 0.65 m/s AoV Peak Grad 12.5 mmHg LVOT Peak Grad 1.7 mmHg AoV Area (Vmax) 0.96 cm2 LVOT VTI 0.166 m AoV VTI 0.485 m LVOT Mean Grad 0.8 mmHg AoV Mean Yasmany. 1.30 m/s LVOT SV 56.03 mL AoV Mean Grad 8.5 mmHg LVOT Diam s 2.05 cm AoV Area (VTI) 1.16 cm2 AV Regurg Peak Gr. 20.68 mmHg Velocity Ratio 0.29 AR Decel [place] 1.1m/sec2 AR Vmax 1.04 m/s Mitral Valve MV DT 256 (160-240 msec) MV Vmax TIPS 0.66 m/s MV Mean Grad 0.7 (<2mmHg) MV VTI 0.282 m Pulmonary Valve PV Vmax 1.20 (0.5-1.5 m/s) RVOT Vmax 0.85 m/s PV Peak Grad 5.8 mmHg RVOT Peak Gr. 2.9 mmHg PV Mean Yasmany 0.82 m/s RVOT VTI 0.201 m PV Mean Grad 3.1 mmHg RVOT Mean Gr. 1.5 mmHg Tricuspid Valve RA Pressure 3.00 mmHg TV S' 0.13 m/s
== END 2024-01-11 02:01 ==
PROVIDERS: PCP Nurse Practitioner Family; Visit Provider Internal Medicine Cardiovascular Disease
DX: Z98.890 Other specified postprocedural states (principal); Z95.2 Presence of prosthetic heart valve
CPT/HCPCS: 93306

== ENCOUNTER 2024-01-18 15:49 | Outpatient (REF) | payer BC, SELFPAY ==
[2024-01-18 19:53] LABS: HCT 42.9 % (40.0-50.0); HGB 14.4 g/dL (13.5-17.5); MCH 29.4 pg (27.0-33.0); MCHC 33.6 % (32.0-36.0); MCV 88 fL (80-95); MPV 12.6 fL (8.0-11.0); Platelet Count 172 10^3/uL (130-400); RBC 4.89 10^6/uL (4.36-5.78); RDW 13.1 % (11.8-14.1); RDW-SD 42.5 fL; WBC 5.24 10^3/uL (4.4-10.8)
[2024-01-18 20:05] LABS: ALT 36 U/L (16-63); AST 35 U/L (15-37); Albumin 4.2 g/dL (3.4-5.0); Alkaline Phosphatase 99 U/L (46-116); Anion Gap 6.7 mmol/L (3-11); BUN 17 mg/dL (7-18); Bilirubin, Total 0.46 mg/dL (0.2-1.0); CO2 27.3 mmol/L (21.0-32.0); CREATININE 1.4 mg/dL (0.70-1.30); Calcium 9.2 mg/dL (8.5-10.1); Calculated LDL 76 mg/dL (<100); Chloride 102 mmol/L (98-107); Cholesterol 162 mg/dL (<200); Glucose 105 mg/dL (74-106); HDL Cholesterol 51 mg/dL (40-60); Sodium 136 mmol/L (136-145); Total Protein 7.5 g/dL (6.4-8.2); Triglyceride 178 mg/dL (<150)
== END 2024-01-18 15:50 | disposition home or self-care (01) ==
LOC: NCHCN 15:49
PROVIDERS: PCP Nurse Practitioner Family; Visit Provider Nurse Practitioner Family
DX: Z12.5 Encounter for screening for malignant neoplasm of prostate (principal)
CPT/HCPCS: 80053; 80061; 84153; 85027; 85610

== ENCOUNTER 2025-01-28 13:27 | Outpatient (REF) | payer OTHER, SELFPAY ==
[2025-01-28 17:38] LABS: HCT 43.6 % (40.0-50.0); HGB 13.9 g/dL (13.5-17.5); MCH 28.3 pg (27.0-33.0); MCHC 31.9 % (32.0-36.0); MCV 89 fL (80-95); MPV 12.0 fL (8.0-11.0); Platelet Count 207 10^3/uL (130-400); RBC 4.92 10^6/uL (4.36-5.78); RDW 12.5 % (11.8-14.1); RDW-SD 40.7 fL; WBC 4.60 10^3/uL (4.4-10.8)
[2025-01-28 17:50] LABS: Prothrombin Time 14.2 sec (9.1-11.1)
[2025-01-28 17:51] LABS: ALT 19 U/L (10-49); AST 25 U/L (<34); Albumin 4.3 g/dL (3.2-5.0); Alkaline Phosphatase 83 U/L (46-116); Anion Gap 6.8 mmol/L (3-11); BUN 15 mg/dL (9-23); Bilirubin, Total 0.50 mg/dL (0.2-1.2); CO2 27.2 mmol/L (20.0-31.0); Calcium 8.9 mg/dL (8.3-10.6); Chloride 107 mmol/L (98-107); Cholesterol 141 mg/dL (<200); Glucose 97 mg/dL (74-106); HDL Cholesterol 48 mg/dL (>40); Potassium 4.8 mmol/L (3.5-5.1); Sodium 141 mmol/L (136-145); Total Protein 7.4 g/dL (5.7-8.2)
[2025-01-28 17:53] LABS: INR 1.4 (0.9-1.1)
== END 2025-01-28 13:28 | disposition home or self-care (01) ==
LOC: NCHCN 13:27
PROVIDERS: PCP Nurse Practitioner Family; Visit Provider Nurse Practitioner Family
DX: Z00.00 Encounter for general adult medical examination without abnormal findings (principal)
CPT/HCPCS: 80053; 80061; 85027; 85610